=== PATIENT | male | born 1985 | race Caucasian/White ===

== ENCOUNTER 2018-08-30 18:17 | Emergency (ER) | payer SELFPAY ==
[2018-08-30 19:46] LABS: ABSOLUTE BASOPHILS # (AUTO) 0.1 10^3/uL (0.0-0.2); ABSOLUTE EOSINOPHILS # (AUTO) 0.2 10^3/uL (0.0-0.6); ABSOLUTE LYMPHOCYTES (AUTO) 1.8 10^3/uL (0.5-4.7); ABSOLUTE MONOCYTES (AUTO) 0.6 10^3/uL (0.1-1.4); ABSOLUTE NEUT (AUTO) 6.7 10^3/uL (1.7-8.2); BASOPHILS % (AUTO) 0.6 % (0-2); EOSINOPHILS % (AUTO) 2.1 % (0-6); HEMATOCRIT 46.2 % (37.9-51.0); HEMOGLOBIN 15.5 g/dL (13.5-17.0); LYMPHOCYTES % (AUTO) 19.3 % (13-45); MEAN CORPUSCULAR HEMOGLOBIN 28.8 pg (27.0-33.4); MEAN CORPUSCULAR HGB CONC 33.5 g/dL (32.0-36.0); MEAN CORPUSCULAR VOLUME 86 fl (80-97); MONOCYTES % (AUTO) 6.8 % (3-13); PLATELET COUNT 325 10^3/uL (150-450); RED BLOOD COUNT 5.37 10^6/uL (4.35-5.55); SEGMENTED NEUTROPHILS % (AUTO) 71.2 % (42-78); TOTAL CELLS COUNTED % (AUTO) 100 %; WHITE BLOOD COUNT 9.5 10^3/uL (4.0-10.5)
[2018-08-30 19:48] LABS: APPEARANCE,URINE CLEAR; BILIRUBIN,URINE NEGATIVE (NEGATIVE); COLOR,URINE STRAW; GLUCOSE, URINE NEGATIVE (NEGATIVE); KETONES,URINE NEGATIVE (NEGATIVE); LEUKOCYTE ESTERASE,URINE NEGATIVE (NEGATIVE); NITRITE,URINE NEGATIVE (NEGATIVE); PROTEIN,URINE NEGATIVE (NEGATIVE); UROBILINOGEN,URINE NEGATIVE mg/dL (<2.0)
[2018-08-30 19:52] LABS: INTERNATIONAL RATION (INR) 0.93
[2018-08-30 19:53] LABS: PARTIAL THROMBOPLASTIN TIME 32.7 SEC (23.5-35.8)
[2018-08-30 19:57] LABS: ALANINE AMINOTRANSFERASE 25 U/L (21-72); ALBUMIN 4.6 g/dL (3.5-5.0); ALKALINE PHOSPHATASE 68 U/L (38-126); ANION GAP 11 (5-19); ASPARTATE AMINO TRANSFERASE 21 U/L (17-59); BILIRUBIN,DIRECT 0.3 mg/dL (0.0-0.4); BILIRUBIN,TOTAL 0.4 mg/dL (0.2-1.3); BLOOD UREA NITROGEN 17 mg/dL (7-20); CALCIUM 9.8 mg/dL (8.4-10.2); CARBON DIOXIDE 29 mmol/L (22-30); CHLORIDE 103 mmol/L (98-107); GLUCOSE 89 mg/dL (75-110); LIPASE 109.1 U/L (23-300); POTASSIUM 4.4 mmol/L (3.6-5.0); SODIUM 142.7 mmol/L (137-145); TOTAL PROTEIN 7.7 g/dL (6.3-8.2)
[2018-08-30 20:05] LABS: URINE AMPHETAMINES SCREEN NEGATIVE; URINE BARBITURATES SCREEN NEGATIVE; URINE BENZODIAZEPINES SCREEN NEGATIVE; URINE COCAINE SCREEN NEGATIVE; URINE METHADONE SCREEN NEGATIVE; URINE PHENCYCLIDINE SCREEN NEGATIVE
--- NOTE | 2018-08-30 20:07 | RADIOLOGY REPORT (SQ) ---
EXAM DESCRIPTION: US ABDOMEN DOPPLER LIMITED COMPLETED DATE/TME: 08/30/2018 19:04 CLINICAL HISTORY: 33 years Male epigastric and ruq pain COMPARISON: None. TECHNIQUE: Transabdominal grayscale imaging were performed to evaluate the right upper quadrant. FINDINGS: Visualized segments of the pancreas are unremarkable. Pancreatic tail is partially obscured by bowel gas. The visualized segments of the aorta appear normal in caliber. Unremarkable liver. No evidence of gallbladder wall thickening, sludge or stones. Common duct measures 3 mm. Unremarkable right kidney without hydronephrosis. Patent hepatopedal portal vein. IMPRESSION: Unremarkable right upper quadrant ultrasound
[2018-08-30 20:10] LABS: URINE MARIJUANA (THC) SCREEN UNCONFIRMED POSITIVE
[2018-08-30] MEDS ORDERED: ONDANSETRON HCL INJ/PF 4 MG/2 ML SDV IV ONE (20:13)
[2018-08-30] MEDS ORDERED: NORMAL SALINE 1000 ML 1,000 ML IV ONE (20:13)
--- NOTE | 2018-08-30 20:18 | ER Document Report ---
ED General - General Chief Complaint: GI Bleeding Stated Complaint: ABDOMINAL PAIN,BLOOD IN STOOL Time Seen by Provider: 08/30/18 19:03 TRAVEL OUTSIDE OF THE [place] IN LAST 30 DAYS: No - HPI Notes: Patient is a 33-year-old male that presents to the emergency department for chief complaint of body diarrhea. Patient reports bright red blood in his diarrhea for the last 4 days. He states he is having bowel movements to times daily. He states he just had one in the emergency room that was not bloody. He denies any associated abdominal pain fevers or chills. He does state he is mildly nauseated with no emesis episodes. He denies any recent travel or antibiotic use. He denies any pain with bowel movement. He denies history of GI bleeding in the past. He is not on any blood thinning medications. He denies associated lightheadedness and palpitations. Past Medical History: Negative Past Surgical History: Bilateral inguinal hernia repair, surgery for undescended testicles as a child Social History: Uses marijuana and tobacco, denies alcohol use Family History: Reviewed and noncontributory for presenting illness Allergies: Reviewed, see documented allergy list. REVIEW OF SYSTEMS: CONSTITUTIONAL : No fever No chills No diaphoresis No recent illness EENT: No vision changes No congestion No sore throat CARDIOVASCULAR: No chest pain No palpitations RESPIRATORY: No shortness of breath No cough No difficulty breathing GASTROINTESTINAL: No abdominal pain nausea No vomiting No diarrhea GENITOURINARY: No dysuria No hematuria No difficulty urinating Bloody stools MUSCULOSKELETAL: No back pain No leg pain No arm pain SKIN: No rashes No lesions LYMPHATIC: No swollen, enlarged glands. NEUROLOGICAL: No lightheadedness No headache No weakness No paresthesias PSYCHIATRIC: No anxiety No depression PHYSICAL EXAMINATION: Vital signs reviewed, nursing noted reviewed. GENERAL: Well-appearing, obese and in no acute distress. HEAD: Atraumatic, normocephalic. EYES: Eyes appear normal, extraocular movements intact, sclera anicteric, conjunctiva are normal. ENT: nares patent, oropharynx clear without exudates. Moist mucous membranes. NECK: Normal range of motion, supple without lymphadenopathy LUNGS: Breath sounds clear to auscultation bilaterally and equal. No wheezes rales or rhonchi. HEART: Regular rate and rhythm without murmurs ABDOMEN: Soft, nontender, normoactive bowel sounds. No rebound, guarding, or rigidity. No masses appreciated. EXTREMITIES: Nontender, good range of motion, no pitting or edema. NEUROLOGICAL: No focal neurological deficits. Moves all extremities spontaneously Motor and sensory grossly intact on exam. PSYCH: Normal mood, normal affect. SKIN: Warm, Dry, normal turgor, no rashes or lesions noted on exposed skin - Related Data Allergies/Adverse Reactions: No Known Allergies Allergy (Unverified 08/30/18 18:25) Past Medical History - Social History Smoking Status: Current Every Day Smoker Frequency of alcohol use: None Drug Abuse: None Family History: Reviewed & Not Pertinent Patient has suicidal ideation: No Patient has homicidal ideation: No Renal/ Medical History: Denies: Hx Peritoneal Dialysis Past Surgical History: Reports: Hx Abdominal Surgery - hernia repair, Hx Genitourinary Surgery - x8 surgeries to bring testicles down, testicles removed Physical Exam - Vital signs Vitals: Temp Pulse Resp BP Pulse Ox 98.0 F 89 16 150/89 H 99 08/30/18 18:25 08/30/18 18:25 08/30/18 18:25 08/30/18 18:25 08/30/18 18:25 Course - Re-evaluation Re-evalutation: 08/30/18 20:15 Vitals reviewed. Nursing notes reviewed. Patient is well-appearing and in no acute distress. He is hemodynamically stable. He had a bowel movement in the emergency room and reports it looks normal. We did obtain a stool culture which will be sent for further evaluation. Patient's lab work is unremarkable. He has no anemia. He appears well-hydrated with no renal insufficiency or electrolyte derangements. Patient was given Zofran for his nausea. Will be referred to GI for follow-up and possible colonoscopy if symptoms return. Patient in agreement with this plan of care and stable at discharge. Laboratory 08/30/18 08/30/18 08/30/18 19:28 19:28 19:28 WBC 9.5 RBC 5.37 Hgb 15.5 Hct 46.2 MCV 86 MCH 28.8 MCHC 33.5 RDW 15.0 H Plt Count 325 Seg Neutrophils % 71.2 Lymphocytes % 19.3 Monocytes % 6.8 Eosinophils % 2.1 Basophils % 0.6 Absolute Neutrophils 6.7 Absolute Lymphocytes 1.8 Absolute Monocytes 0.6 Absolute Eosinophils 0.2 Absolute Basophils 0.1 PT 13.0 INR 0.93 APTT 32.7 Sodium 142.7 Potassium 4.4 Chloride 103 Carbon Dioxide 29 Anion Gap 11 BUN 17 Creatinine 0.73 Est GFR ( Amer) > 60 Est GFR (Non-Af Amer) > 60 Glucose 89 Calcium 9.8 Total Bilirubin 0.4 Direct Bilirubin 0.3 Neonat Total Bilirubin Not Reportable Neonat Direct Bilirubin Not Reportable Neonat Indirect Bili Not Reportable AST 21 ALT 25 Alkaline Phosphatase 68 Total Protein 7.7 Albumin 4.6 Lipase 109.1 Urine Color Urine Appearance Urine pH Ur Specific [place] Urine Protein Urine Glucose (UA) Urine Ketones Urine Blood Urine Nitrite Urine Bilirubin Urine Urobilinogen Ur Leukocyte Esterase Urine WBC (Auto) Urine RBC (Auto) Squamous Epi Cells Auto Urine Mucus (Auto) Urine Ascorbic Acid Urine Opiates Screen Urine Methadone Screen Ur Barbiturates Screen Ur Phencyclidine Scrn Ur Amphetamines Screen U Benzodiazepines Scrn Urine Cocaine Screen U Marijuana (THC) Screen 08/30/18 08/30/18 19:28 19:28 WBC RBC Hgb Hct MCV MCH MCHC RDW Plt Count Seg Neutrophils % Lymphocytes % Monocytes % Eosinophils % Basophils % Absolute Neutrophils Absolute Lymphocytes Absolute Monocytes Absolute Eosinophils Absolute Basophils PT INR APTT Sodium Potassium Chloride Carbon Dioxide Anion Gap BUN Creatinine Est GFR ( Amer) Est GFR (Non-Af Amer) Glucose Calcium Total Bilirubin Direct Bilirubin Neonat Total Bilirubin Neonat Direct Bilirubin Neonat Indirect Bili AST ALT Alkaline Phosphatase Total Protein Albumin Lipase Urine Color STRAW Urine Appearance CLEAR Urine pH 6.0 Ur Specific [place] 1.010 Urine Protein NEGATIVE Urine Glucose (UA) NEGATIVE Urine Ketones NEGATIVE Urine Blood NEGATIVE Urine Nitrite NEGATIVE Urine Bilirubin NEGATIVE Urine Urobilinogen NEGATIVE Ur Leukocyte Esterase NEGATIVE Urine WBC (Auto) 1 Urine RBC (Auto) 0 Squamous Epi Cells Auto <1 Urine Mucus (Auto) RARE Urine Ascorbic Acid NEGATIVE Urine Opiates Screen NEGATIVE Urine Methadone Screen NEGATIVE Ur Barbiturates Screen NEGATIVE Ur Phencyclidine Scrn NEGATIVE Ur Amphetamines Screen NEGATIVE U Benzodiazepines Scrn NEGATIVE Urine Cocaine Screen NEGATIVE U Marijuana (THC) Screen UNCONFIRMED POSITIVE Abdomen Ultrasound 08/30/18 19:04 IMPRESSION: Unremarkable right upper quadrant ultrasound - Vital Signs Vital signs: Temp Pulse Resp BP Pulse Ox 98.0 F 89 16 150/89 H 99 08/30/18 18:25 08/30/18 18:25 08/30/18 18:25 08/30/18 18:25 08/30/18 18:25 - Laboratory Result Diagrams: 08/30/18 19:28 08/30/18 19:28 Laboratory results interpreted by me: 08/30/18 19:28 RDW 15.0 H Discharge - Discharge Clinical Impression: Bloody diarrhea, Elevated blood pressure reading Condition: Stable Disposition: HOME, SELF-CARE Instructions: High Blood Pressure ([facility]), Positive Test for Blood in Stool ([facility]) Additional Instructions: Please return to the emergency department if you have any worsening, or concern of your symptoms. Please return to the emergency department if you develop fevers chest pain, difficulty breathing, severe abdominal pain, or ongoing vomiting. Please follow-up with your primary care physician in 2-3 days and any other recommended physicians. If prescribed, take all medications as directed. If you have any questions or concerns do not hesitate to return the emergency department for evaluation. Stay well-hydrated Prescriptions: Ondansetron [Zofran Odt 4 mg Tablet] 1 tab PO Q4H PRN #15 tab.rapdis PRN Reason: For Nausea/Vomiting Referrals: ELLIOT SEVERINO MD [ACTIVE STAFF] - Follow up in 3-5 days
[2018-08-30 20:44] VITALS: BP 150/79
== END 2018-08-30 20:44 | disposition home or self-care (01) ==
LOC: ER 18:17
DX: R19.5 Other fecal abnormalities (principal); R19.7 Diarrhea, unspecified; R03.0 Elevated blood-pressure reading, without diagnosis of hypertension; R11.0 Nausea; F17.200 Nicotine dependence, unspecified, uncomplicated
CPT/HCPCS: 99285; 96374; 36415; 87045; 87205; 83690; 85025; 85610; 85730; 82272; 80053; 81001; 80307; 76705; 93976; J2405

== ENCOUNTER 2018-09-14 19:43 | Emergency (ER) | payer SELFPAY ==
--- NOTE | 2018-09-14 20:33 | ER Document Report ---
HPI - HPI Patient complains to provider of: dental pain Time Seen by Provider: 09/14/18 20:31 Pain Level: 5 Past Medical History - Social History Family History: Reviewed & Not Pertinent Renal/ Medical History: Denies: Hx Peritoneal Dialysis Past Surgical History: Reports: Hx Abdominal Surgery - hernia repair, Hx Genitourinary Surgery - x8 surgeries to bring testicles down, testicles removed Vertical Provider Document - INFECTION CONTROL TRAVEL OUTSIDE OF THE [place] IN LAST 30 DAYS: No Course - Vital Signs Vital signs: Temp Pulse Resp BP Pulse Ox 100.1 F 102 H 20 129/72 H 95 09/14/18 20:00 09/14/18 20:00 09/14/18 20:00 09/14/18 20:00 09/14/18 20:00 Discharge - Discharge Clinical Impression: Pain, dental Condition: Stable Disposition: HOME, SELF-CARE Instructions: Penicillin V K ([facility]), Toothache ([facility]) Additional Instructions: *You have been evaluated for dental pain *Take medications as prescribed *Follow up with dentist *Return to ED for worsening condition, changes, needs
[2018-09-14 22:11] VITALS: BP 139/74
[2018-09-14] MEDS ORDERED: PENICILLIN V POTASSIUM 500 MG TABLET PO ONE (22:11)
[2018-09-14] MEDS ORDERED: HYDROCODONE/ACETAMINOPHEN 5-325 MG TABLET PO ONE (22:11)
--- NOTE | 2018-09-14 22:18 | ER Document Report ---
ED Oral Problem - General Chief Complaint: Toothache Stated Complaint: FEVER Time Seen by Provider: 09/14/18 20:31 Mode of Arrival: Ambulatory Information source: Patient Notes: 33-year-old male presented to ED for complaint of right lower dental pain that is much worse today. He states his been having a fever all day today. His temperature was 100.1 when I saw him and the emergency room. He states he has a tooth that is broken off at the gumline and it has become very sore and swollen. It is tooth #30 there is very minimal to this was mostly just the root and swelling to the gums. There is no abscess noted. TRAVEL OUTSIDE OF THE [place] IN LAST 30 DAYS: No - HPI Patient complains to provider of: Swelling of jaw, Toothache Onset: Other Onset: Gradual Quality of pain: Pressure, Stabbing, Throbbing Severity: Severe Pain Level: 5 Associated symptoms: Jaw pain, Toothache Worsened by: Nothing Relieved by: Nothing Similar symptoms previously: Yes Recently seen / treated by doctor/dentist: No - Related Data Allergies/Adverse Reactions: No Known Allergies Allergy (Unverified 08/30/18 18:25) Past Medical History - General Information source: Patient - Social History Smoking Status: Current Every Day Smoker Cigarette use (# per day): Yes - Half pack a day Smoking Education Provided: Yes Frequency of alcohol use: None Drug Abuse: Marijuana Occupation: [employer] with: Family Family History: Reviewed & Not Pertinent Patient has suicidal ideation: No Patient has homicidal ideation: No - Past Medical History Cardiac Medical History: Reports: None Pulmonary Medical History: Reports: None EENT Medical History: Reports: None Neurological Medical History: Reports: None Endocrine Medical History: Reports: None Renal/ Medical History: Reports: None Malignancy Medical History: 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 GI Medical History: Reports: None Musculoskeletal Medical History: Reports None Skin Medical History: Reports None Psychiatric Medical History: Reports: None Traumatic Medical History: Reports: None Infectious Medical History: Reports: None Past Surgical History: Reports: Hx Abdominal Surgery - hernia repair, Hx Genitourinary Surgery - x8 surgeries to bring testicles down, testicles removed, Hx Testicular Surgery - Left testicle removed for cancer - Immunizations Immunizations up to date: Yes Review of Systems - Review of Systems Constitutional: Fever EENT: Mouth pain, Dental problem Cardiovascular: No symptoms reported Respiratory: No symptoms reported Gastrointestinal: No symptoms reported Genitourinary: No symptoms reported Male Genitourinary: No symptoms reported Musculoskeletal: No symptoms reported Skin: No symptoms reported Hematologic/Lymphatic: No symptoms reported Neurological/Psychological: No symptoms reported -: Yes All other systems reviewed and negative Physical Exam - Vital signs Vitals: Temp Pulse Resp BP Pulse Ox 100.1 F 102 H 20 129/72 H 95 09/14/18 20:00 09/14/18 20:00 09/14/18 20:00 09/14/18 20:00 09/14/18 20:00 Interpretation: Normal - General General appearance: Appears well, Alert - HEENT Head: Normocephalic, Atraumatic Eyes: Normal Pupils: PERRL Ears: Normal External canal: Normal Tympanic membrane: Normal Sinus: Normal Nasal: Normal Mouth/Lips: Caries Mucous membranes: Normal Teeth diagram: 1 - Most of the tooth missing roots still present swelling surrounding the roots tenderness to palpation Pharynx: Normal Neck: Anterior cervical chain - Respiratory Respiratory status: No respiratory distress Chest status: Nontender Breath sounds: Normal Chest palpation: Normal - Cardiovascular Rhythm: Regular Heart sounds: Normal auscultation Murmur: No - Abdominal Inspection: Normal Distension: No distension Bowel sounds: Normal Tenderness: Nontender Organomegaly: No organomegaly - Back Back: Normal, Nontender - Extremities General upper extremity: Normal inspection, Nontender, Normal color, Normal ROM, Normal temperature General lower extremity: Normal inspection, Nontender, Normal color, Normal ROM, Normal temperature, Normal weight bearing. No: Ami's sign - Neurological Neuro grossly intact: Yes Cognition: Normal Orientation: AAOx4 Kenny Coma Scale Eye Opening: Spontaneous [place] Coma Scale Verbal: Oriented [place] Coma Scale Motor: Obeys Commands Kenny Coma Scale Total: 15 Speech: Normal Motor strength normal: LUE, RUE, LLE, RLE Sensory: Normal - Psychological Associated symptoms: Normal affect, Normal mood - Skin Skin Temperature: Warm Skin Moisture: Dry Skin Color: Normal Course - Re-evaluation Re-evalutation: 05/21/19 00:37 Patient was treated with penicillin VK and a Tatum in the emergency room. Patient was discharged home with prescription for penicillin VK. Patient was instructed on use of Tylenol or Motrin and instructed to follow-up with primary care and a dentist. Patient was discharged home. - Vital Signs Vital signs: Temp Pulse Resp BP Pulse Ox 100.1 F 100 19 139/74 H 96 09/14/18 22:09 09/14/18 22:09 09/14/18 22:09 09/14/18 22:09 09/14/18 22:09 Discharge - Discharge Clinical Impression: Pain, dental Condition: Stable Disposition: HOME, SELF-CARE Instructions: Family Physicians / Practices Additional Instructions: TOOTHACHE: Your pain is due to dental decay. The tooth must be repaired in order for you to feel better. You will, therefore, be referred to a dentist. We do not have dentists on the staff at [facility]. Severe swelling or drainage around a tooth usually means a dental abscess. This also requires evaluation and treatment by the dentist, but antibiotics may be prescribed while awaiting dental treatment. You should be rechecked immediately if you develop major swelling of the face, increasing pain, a lump in the jaw or gums, headache, difficulty swallowing, or fever. ORAL NARCOTIC MEDICATION: You have been given a Tatum for pain control. This medication is a narcotic. It's best taken with food, as nausea can result if taken on an empty stomach. Don't operate machinery or drive within six hours of taking this med ication. Do not combine this medicine with alcohol, or with any medication which can cause sedation (such as cold tablets or sleeping pills) unless you get permission from the physician. Narcotics tend to cause constipation. If possible, drink plenty of fluids and eat a diet high in fiber and fruits. Please be aware that prescription narcotics also have the potential for abuse. People become addicted to these medications because of the general sense of wellbeing that they induce. This feeling along with a significant reduction in tension, anxiety, and aggression provides a stimulating seductive quality to these drugs. Once your pain is under control, we encourage you to discard your unused narcotics. PENICILLIN V K: You have been given a prescription for Penicillin VK. Your physician has determined that this is the best antibiotic for your condition. Pen VK can be taken with meals, however more of the antibiotic gets into the bloodstream if it's taken on an empty stomach. Penicillin usually has no side effects. However, allergy to penicillins is common. If you have had an allergic reaction to any drug of the penicillin family, you should never take any other penicillin. Notify your doctor at once if you develop hives, itching, swelling, faintness, or shortness of breath. FOLLOW-UP CARE: You have been referred for follow-up care to the dentists listed below. Call the dentists office for an appointment as you were instructed or within the next two days. If you experience worsening or a significant change in your symptoms, notify the physician immediately or return to the Emergency Department at any time for re-evaluation. [facility] [address] [place], [place] [facility] [address] [place] [address] [facility] [address] [facility] [address] [facility] [address] [facility] [address] [facility] [email or web address] [email or web address] [facility] [employer] [address] [place] [address] Friday- 8:00am to 5:00 pm Will see patients from other [facility]. Charges based on income and family size and accepts Medicare, Medicaid, and Insurances Will pull molars [facility] [id number] Hours of Operation 8:00 am - 4:30 pm weekdays The following dental offices accept Medicaid: [facility] Dr. Calixto Dr. Black Dr. Stahl Dr. Hardin Mateusz Fagan Lutsavage, and [facility] oral surgery Dr. Bueno ([place]) Dr. Mckoy ([place]) [facility] Drs. Monroy and Eladio ([place]) Dr. Orozco ([place]) [facility] Dr. Gomez ([place]) Drs. Crow and ([place]) Medicaid Care Line Prescriptions: Penicillin V Potassium [Penicillin Vk 500 mg Tablet] 500 mg PO BID #20 tablet Forms: Elevated Blood Pressure, Smoking Cessation Education, Return to Work
== END 2018-09-14 22:38 | disposition home or self-care (01) ==
LOC: ER 19:43
DX: K08.89 Other specified disorders of teeth and supporting structures (principal); R50.9 Fever, unspecified; R22.0 Localized swelling, mass and lump, head; R68.84 Jaw pain; F17.210 Nicotine dependence, cigarettes, uncomplicated
CPT/HCPCS: 99282

== ENCOUNTER 2018-11-09 18:24 | Emergency (ER) | payer SELFPAY ==
[2018-11-09 23:46] VITALS: BP 135/85
--- NOTE | 2018-11-10 07:34 | ER Document Report ---
Entered by JOSE GUERRA SCRIBE 11/09/18 [id number] Acting as scribe for:KARMEN GAMBLE DO ED General - General Chief Complaint: Lip Swelling Stated Complaint: BLISTERS ON LIPS Time Seen by Provider: 11/09/18 22:43 Notes: Patient is a 33-year-old male presenting to the emergency department complaining of lip blistering. Patient states that his lips began bubbling up yesterday, it progressed and they became very chapped and blistered today and it has been painful. 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 Patient has a his history of genital herpes, and currently takes antipsychotics but has not had any recent change or increase in his medications. Patient denies having any blisters in inside of his mouth, on eyes, ears, nose, genital area, urethra. TRAVEL OUTSIDE OF THE [place] 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 Cardiovascular: No symptoms reported Respiratory: No symptoms reported Gastrointestinal: No symptoms reported Genitourinary: No symptoms reported Male Genitourinary: No symptoms reported Musculoskeletal: No symptoms reported Skin: See HPI - Lip blisters. Hematologic/Lymphatic: No symptoms reported Neurological/Psychological: No symptoms reported -: Yes All other systems reviewed and negative Physical Exam - Vital signs Vitals: Temp Pulse Resp BP Pulse Ox 98.4 F 94 20 148/79 H 98 11/09/18 18:37 11/09/18 18:37 11/09/18 18:37 11/09/18 18:37 11/09/18 18:37 - Notes Notes: PHYSICAL EXAM GENERAL: Alert, interacts well. No acute distress. HEAD: Normocephalic, atraumatic. EYES: Pupils equal, round, and reactive to light. Extraocular movements intact. ENT: No blisters present in ears bilaterally. Fluid-filled vesicles on both lips in various stages of healing, they do cross the midline. There are no blisters inside the mouth. There are 3 blisters found outside of the mouth just above and below the lips on the left-hand side. Oral mucosa moist, tongue midline. NECK: Full range of motion. Supple. Trachea midline. LUNGS: Clear to auscultation bilaterally, no wheezes, rales, or rhonchi. No respiratory distress. HEART: Regular rate and rhythm. No murmurs, gallops, or rubs. ABDOMEN: Soft, non-tender. Non-distended. Bowel sounds present in all 4 quadrants. No guarding, rigidity, or rebound. EXTREMITIES: Moves all 4 extremities spontaneously. No edema, No cyanosis. NEUROLOGICAL: Alert and oriented x3. Normal speech. Biceps and patellar DTRs 2+ bilaterally. PSYCH: Normal affect, normal mood. SKIN: Warm, dry. Course - Re-evaluation Re-evalutation: 11/09/18 23:21 Blisters are limited only to the lips, no blistering inside her mouth or any new meds other mucous membranes, no sloughing, negative Nikolsky sign. Patient has a history of genital herpes outbreaks in the past. Doubt Alcantara-South syndrome at this time. Treat with acyclovir and discharged home. - Vital Signs Vital signs: Temp Pulse Resp BP Pulse Ox 98.2 F 80 18 135/85 H 98 11/09/18 23:44 11/09/18 23:44 11/09/18 23:44 11/09/18 23:44 11/09/18 23:44 Discharge - Discharge Clinical Impression: Herpes labialis without complication Condition: Stable Disposition: HOME, SELF-CARE Additional Instructions: Herpes Simplex You have been diagnosed as having a herpes virus infection. The herpes ("cold sore") virus usually infects the areas around the mouth. However, it can cause infection on any skin surface. It's particularly dangerous if infection occurs in the eye. On the initial infection, herpes blisters erupt over a large area. There is usually fever and aching. This infection takes about 14 days to resolve. After the initial infection, herpes sores can erupt on small areas (usually the lips), then heal in about a week. Sunburn, fever, local irritation, or even emotions can provoke a "fever blister" attack of herpes. Initial herpes infections can be treated with medication if severe. Subsequent attacks are usually given only local care to reduce symptoms; however, the physician may decide to prescribe anti-viral medication if your case warrants it. Call the doctor if you are worsening in any way. If you develop blisters in your mouth, in your nose, around your rectum or on your penis please return to the emergency department. Prescriptions: Acyclovir [Zovirax 200 mg Capsule] 200 mg PO 5XD #50 capsule I personally performed the services described in the documentation, reviewed and edited the documentation which was dictated to the scribe in my presence, and it accurately records my words and actions.
== END 2018-11-09 23:44 | disposition home or self-care (01) ==
LOC: ER 18:24
DX: B00.1 Herpesviral vesicular dermatitis (principal); F17.200 Nicotine dependence, unspecified, uncomplicated
CPT/HCPCS: 99283

== ENCOUNTER 2019-03-06 05:22 | Emergency (ER) | payer SELFPAY ==
[2019-03-06] MEDS ORDERED: ONDANSETRON HCL INJ/PF 4 MG/2 ML SDV IV ONE ×3 (05:59→09:24)
[2019-03-06] MEDS ORDERED: MORPHINE SULFATE 10 MG/ML INJ IV ONE (05:59)
[2019-03-06] MEDS ORDERED: NORMAL SALINE 1000 ML 1,000 ML IV ONE (05:59)
--- NOTE | 2019-03-06 06:05 | ER Document Report ---
ED GI/ - General TRAVEL OUTSIDE OF THE [place] IN LAST 30 DAYS: No <CESAR PRESCOTT - Last Filed: 03/06/19 07:18> <ELIUD CORRIGAN - Last Filed: 03/06/19 10:50> - General Chief Complaint: Lower Abdominal Pain Stated Complaint: PELVIC PAIN Time Seen by Provider: 03/06/19 05:45 Notes: Patient is a 33-year-old male that comes to the emergency department for chief complaint of sharp lower abdominal pain with nausea. He states he has had worsening pain for the past 2 days but this morning it became much more severe. He denies vomiting, fever, he states he had a normal bowel movement within the past 24 hours. He denies dysuria or penile discharge. He has had bilateral inguinal hernia repair, testicular removal for testicular cancer (on no current treatments for this), and testicular removal for testicular torsion. Only medications reported are antidepressants and testosterone. His significant other is at bedside. (CESAR PRESCOTT) - Related Data Allergies/Adverse Reactions: No Known Allergies Allergy (Verified 03/06/19 05:23) Past Medical History - General Information source: Patient - Sodium 1 - Social History Smoking Status: Never Smoker Drug Abuse: None Lives with: Family Family History: Reviewed & Not Pertinent Patient has suicidal ideation: No Patient has homicidal ideation: No Renal/ Medical History: Denies: Hx Peritoneal Dialysis Malignancy Medical History: 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 Past Surgical History: Reports: Hx Abdominal Surgery - Bilateral inguinal hernia repair, Hx Genitourinary Surgery - x8 surgeries for undescended testicle, removed for torsion (right), Hx Testicular Surgery - Left testicle removed for cancer - Immunizations Immunizations up to date: Yes <CESAR PRESCOTT - Last Filed: 03/06/19 07:18> Review of Systems - Review of Systems Constitutional: No symptoms reported EENT: No symptoms reported Cardiovascular: No symptoms reported Respiratory: No symptoms reported Gastrointestinal: See HPI Genitourinary: See HPI Male Genitourinary: No symptoms reported Musculoskeletal: No symptoms reported Skin: No symptoms reported Hematologic/Lymphatic: No symptoms reported Neurological/Psychological: No symptoms reported <CESAR PRESCOTT - Last Filed: 03/06/19 07:18> Physical Exam <CESAR PRESCOTT - Last Filed: 03/06/19 07:18> - Vital signs Vitals: Temp Pulse Resp BP Pulse Ox 97.7 F 57 L 16 156/90 H 100 03/06/19 05:27 03/06/19 05:27 03/06/19 05:27 03/06/19 05:27 03/06/19 05:27 - Notes Notes: GENERAL: Alert, interacts well. Appears mildly uncomfortable. HEAD: Normocephalic, atraumatic. EYES: Pupils equal, round, and reactive to light. Extraocular movements intact. ENT: Oral mucosa moist, tongue midline. Oropharynx unremarkable. Airway patent. LUNGS: Clear to auscultation bilaterally, no wheezes, rales, or rhonchi. No respiratory distress. HEART: Regular rate and rhythm. No murmur ABDOMEN: Bilateral lower abdominal tenderness in the lower abdomen extending to the suprapubic area, no hard or erythematous areas are noted, no specific guarding, no rigidity. Bowel sounds present throughout. GENITOURINARY: No discharge or tenderness noted, no erythema, patient has no testicles. Unremarkable otherwise. EXTREMITIES: Moves all 4 extremities spontaneously. No edema, normal radial and dorsalis pedis pulses bilaterally. No cyanosis. BACK: no cervical, thoracic, lumbar midline tenderness. No saddle anesthesia, normal distal neurovascular exam. NEUROLOGICAL: Alert and oriented x3. Normal speech. Cranial nerves II through XII grossly intact. PSYCH: Normal affect, normal mood. SKIN: Warm, dry, normal turgor. No rashes or lesions noted. (CESAR PRESCOTT) Course - Laboratory Result Diagrams: 03/06/19 06:20 03/06/19 06:20 <CESAR PRESCOTT - Last Filed: 03/06/19 07:18> - Laboratory Result Diagrams: 03/06/19 06:20 03/06/19 06:20 <ELIUD CORRIGAN - Last Filed: 03/06/19 10:50> - Re-evaluation Re-evalutation: CBC, chemistry nonspecific with no concerning a normality's. Urine is still pending. I reevaluate patient, he states he feels better, he looks more comfortable, he still states he has a lot of pain in the general lower abdomen. Because of patient's surgical history, worsening pain and nausea, imaging will be performed. (CESAR PRESCOTT) 03/06/19 10:37 I accepted patient from [facility], at change of shift at 8 AM. We did a warm bedside handoff and patient was sitting comfortably in the bed reporting mild pain but significant interval improvement from initial presentation per Cesar. Urinalysis was negative for a urinary tract infection and without hematuria effectively ruling out urinary tract infection, and I do not suspect prostatitis. Lab work all within normal limits. CT abdomen/pelvis with IV and oral contrast was negative for any surgical pathology. Patient states that he was recently able to start getting erections due to testosterone replacement therapy and questioned if this could be the cause of the pain. I explained to patient is very unlikely that this is the cause of the abdominal pain and could be due to scar tissue from his significant surgical history. Plan is to discharge him home with Zofran ODT and a short course of pain medication. Stable for discharge. (ELIUD CORRIGAN) - Vital Signs Vital signs: Temp Pulse Resp BP Pulse Ox 97.9 F 72 16 144/62 H 99 03/06/19 06:55 03/06/19 06:55 03/06/19 06:55 03/06/19 06:55 03/06/19 06:55 - Laboratory Laboratory results interpreted by me: 03/06/19 03/06/19 06:20 06:20 Hgb 13.4 L Chloride 108 H Calcium 8.3 L AST 15 L Total Protein 5.6 L Albumin 3.2 L Discharge <CESAR PRESCOTT - Last Filed: 03/06/19 07:18> <ELIUD CORRIGAN - Last Filed: 03/06/19 10:50> - Discharge Clinical Impression: Lower abdominal pain Condition: Good Disposition: HOME, SELF-CARE Instructions: Abdominal Pain ([facility]), Bulk Laxatives Additional Instructions: You were seen in the emergency room for lower abdominal pain. Your work-up was completely negative to include normal lab work, a normal urinalysis, and your CT scan did not show any evidence or concern for surgical pathology. Once your insurance is set please obtain a primary care provider so you can get referral to urologist. I will give you information for the [facility] urology group here in town so you have it just in case. Add MiraLAX to your diet to see if that will help firm up your stools. Also, I have given you a very short course of pain medication to help bridge you through this acute phase. You can continue to take ibuprofen 600 mg every 6 hours and/or Tylenol 1000 mg every 6 hours for pain and discomfort. Please return to the emergency department if your abdominal pain gets acutely worse, you unable to pass gas or have a bowel movement, you are unable to urinate, or you have any other concerning symptoms. Referrals: LACI BROWN MD [NO LOCAL MD] - Follow up as needed
[2019-03-06 06:31] LABS: ABSOLUTE EOSINOPHILS # (AUTO) 0.4 10^3/uL (0.0-0.6); ABSOLUTE MONOCYTES (AUTO) 0.5 10^3/uL (0.1-1.4); BASOPHILS % (AUTO) 0.5 % (0-2); TOTAL CELLS COUNTED % (AUTO) 100 %
[2019-03-06 06:39] LABS: ABSOLUTE LYMPHOCYTES (AUTO) 2.1 10^3/uL (0.5-4.7); ABSOLUTE NEUT (AUTO) 4.6 10^3/uL (1.7-8.2); EOSINOPHILS % (AUTO) 4.9 % (0-6); HEMATOCRIT 39.1 % (37.9-51.0); HEMOGLOBIN 13.4 g/dL (13.5-17.0); LYMPHOCYTES % (AUTO) 27.5 % (13-45); MEAN CORPUSCULAR HEMOGLOBIN 29.5 pg (27.0-33.4); MEAN CORPUSCULAR HGB CONC 34.3 g/dL (32.0-36.0); MEAN CORPUSCULAR VOLUME 86 fl (80-97); MONOCYTES % (AUTO) 7.1 % (3-13); PLATELET COUNT 295 10^3/uL (150-450); RED BLOOD COUNT 4.55 10^6/uL (4.35-5.55); RED CELL DISTRIBUTION WIDTH 13.5 % (11.5-14.0); WHITE BLOOD COUNT 7.7 10^3/uL (4.0-10.5)
[2019-03-06 06:40] LABS: ALBUMIN 3.2 g/dL (3.5-5.0); ALKALINE PHOSPHATASE 55 U/L (38-126); ANION GAP 6 (5-19); ASPARTATE AMINO TRANSFERASE 15 U/L (17-59); BILIRUBIN,TOTAL 0.4 mg/dL (0.2-1.3); BLOOD UREA NITROGEN 14 mg/dL (7-20); CALCIUM 8.3 mg/dL (8.4-10.2); CARBON DIOXIDE 26 mmol/L (22-30); CHLORIDE 108 mmol/L (98-107); GLUCOSE 103 mg/dL (75-110); POTASSIUM 3.8 mmol/L (3.6-5.0); TOTAL PROTEIN 5.6 g/dL (6.3-8.2)
[2019-03-06] MEDS ORDERED: HYDROMORPHONE HCL INJ/PF 2 MG/ML AMPULE IV ONE ×2 (07:37→10:28)
[2019-03-06 08:17] LABS: APPEARANCE,URINE CLEAR; BILIRUBIN,URINE NEGATIVE (NEGATIVE); COLOR,URINE YELLOW; GLUCOSE, URINE NEGATIVE (NEGATIVE); KETONES,URINE NEGATIVE (NEGATIVE); LEUKOCYTE ESTERASE,URINE NEGATIVE (NEGATIVE); NITRITE,URINE NEGATIVE (NEGATIVE); PROTEIN,URINE NEGATIVE (NEGATIVE); UROBILINOGEN,URINE NEGATIVE mg/dL (<2.0)
--- NOTE | 2019-03-06 10:17 | RADIOLOGY REPORT (SQ) ---
EXAM DESCRIPTION: CT ABD/PELVIS WITH IV ORAL COMPLETED DATE/TIME: 03/06/2019 10:05 am REASON FOR STUDY: sharp abd pain,nausea, hx hernia repairs COMPARISON: None. TECHNIQUE: CT scan of the abdomen and pelvis performed using helical scanning technique with dynamic intravenous contrast injection. With oral contrast. Images reviewed with lung, soft tissue, and bon e windows. Reconstructed coronal and sagittal MPR images reviewed. Delayed images for evaluation of t he urinary system also acquired. All images stored on PACS. All CT scanners at this facility use dose modulation, iterative reconstruction, and/or weight based d osing when appropriate to reduce radiation dose to as low as reasonably achievable (ALARA). [facility]: Dose Right [facility]: CareDose [facility]: Dose Right [facility]: Teradose 4D [facility]: [employer] CONTRAST TYPE AND DOSE: contrast/concentration: Isovue 350.00 mg/ml; Total Contrast Delivered: 100.0 ml; Total Saline Delivered: 72.0 ml RENAL FUNCTION: None required. The patient is less than 50 years old. RADIATION DOSE: CT Rad equipment meets quality standard of care and radiation dose reduction techniq ues were employed. CTDIvol: NaN - NaN mGy. DLP: 0 mGy-cm.. LIMITATIONS: None. FINDINGS: LOWER CHEST: No significant findings. No nodules or infiltrates. LIVER: Normal size. No masses. No dilated ducts. SPLEEN: Normal size. No focal lesions. PANCREAS: No masses. No significant calcifications. No adjacent inflammation or peripancreatic fluid collections. Pancreatic duct not dilated. GALLBLADDER: No identified stones by CT criteria. No inflammatory changes to suggest cholecystitis. ADRENAL GLANDS: No significant masses or asymmetry. RIGHT KIDNEY AND URETER: No solid masses. No significant calcifications. No hydronephrosis or hyd roureter. LEFT KIDNEY AND URETER: No solid masses. No significant calcifications. No hydronephrosis or hydr oureter. AORTA AND VESSELS: No aneurysm. No dissection. Renal arteries, SMA, celiac without stenosis. RETROPERITONEUM: No retroperitoneal adenopathy, hemorrhage or masses. BOWEL AND PERITONEAL CAVITY: No masses or inflammatory changes. No free fluid or peritoneal masses. APPENDIX: Normal. PELVIS: No mass. No free fluid. Normal bladder. ABDOMINAL WALL: No masses. No hernias. BONES: No significant or acute findings. OTHER: No other significant finding. IMPRESSION: NO SIGNIFICANT OR ACUTE FINDING IN THE ABDOMEN OR PELVIS ON CT SCAN WITH IV CONTRAST. TECHNICAL DOCUMENTATION: JOB ID: [id number] Quality ID # [id number]: Final reports with documentation of one or more dose reduction techniques (e.g., Au tomated exposure control, adjustment of the mA and/or kV according to patient size, use of iterative reconstruction technique) 2010 [employer]- All Rights Reserved Reading location - IP/workstation name: [email or web address]
[2019-03-06] MEDS ORDERED: HYDROCODONE/ACETAMINOPHEN 5-325 MG (6 TAB/ER DISP) PO PRN (10:48)
[2019-03-06] MEDS ORDERED: ONDANSETRON ODT 4 MG TAB (6 TAB/ER DISP) PO PRN (10:48)
[2019-03-06 11:14] VITALS: BP 120/68
== END 2019-03-06 11:16 | disposition home or self-care (01) ==
LOC: ER 05:22
DX: R10.30 Lower abdominal pain, unspecified (principal); R11.0 Nausea; Z85.47 Personal history of malignant neoplasm of testis; Z90.79 Acquired absence of other genital organ(s)
CPT/HCPCS: 96376; 99284; 96361; 96374; 96375; 36415; 83605; 85025; 80053; 81001; 74177; J2270; J1170; J2405; J7030

== ENCOUNTER 2019-03-24 18:54 | Emergency (ER) | payer SELFPAY ==
[2019-03-24] MEDS ORDERED: NORMAL SALINE 1000 ML 1,000 ML IV ONE (19:31)
[2019-03-24] MEDS ORDERED: ONDANSETRON HCL INJ/PF 4 MG/2 ML SDV IV ONE (19:31)
--- NOTE | 2019-03-24 19:33 | ER Document Report ---
ED Medical Screen (RME) - General Chief Complaint: Rectal Bleeding Stated Complaint: RECTAL BLEEDING Time Seen by Provider: 03/24/19 19:30 Mode of Arrival: Ambulatory Information source: Patient Notes: Patient presents complaining of lower pelvic pain for the past 2 weeks with rectal bleeding for the past 4 days. Patient does report feeling lightheaded. Patient denies any fever. Patient states he has had diarrhea for the past 6 weeks. Patient also complains of nausea. Patient does report a history of Crohn's disease I have greeted and performed a rapid initial assessment of this patient. A comprehensive ED assessment and evaluation of the patient, analysis of test results and completion of the medical decision making process will be conducted by additional ED providers. TRAVEL OUTSIDE OF THE [place] IN LAST 30 DAYS: No - Related Data Allergies/Adverse Reactions: No Known Allergies Allergy (Verified 03/06/19 05:23) Past Medical History Renal/ Medical History: Denies: Hx Peritoneal Dialysis Malignancy Medical History: 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 Past Surgical History: Reports: Hx Abdominal Surgery - Bilateral inguinal hernia repair, Hx Genitourinary Surgery - x8 surgeries for undescended testicle, removed for torsion (right), Hx Testicular Surgery - Left testicle removed for cancer - Immunizations Immunizations up to date: Yes Physical Exam - Vital signs Vitals: Temp Pulse Resp BP Pulse Ox 98.7 F 82 20 146/86 H 97 03/24/19 19:11 03/24/19 19:11 03/24/19 19:11 03/24/19 19:11 03/24/19 19:11 - Abdominal Tenderness: Tender - Lower pelvic Course - Vital Signs Vital signs: Temp Pulse Resp BP Pulse Ox 98.7 F 82 20 146/86 H 97 03/24/19 19:11 03/24/19 19:11 03/24/19 19:11 03/24/19 19:11 03/24/19 19:11
[2019-03-24 20:01] LABS: ABSOLUTE EOSINOPHILS # (AUTO) 0.2 10^3/uL (0.0-0.6); ABSOLUTE LYMPHOCYTES (AUTO) 2.9 10^3/uL (0.5-4.7); ABSOLUTE MONOCYTES (AUTO) 0.8 10^3/uL (0.1-1.4); APPEARANCE,URINE CLEAR; BASOPHILS % (AUTO) 0.4 % (0-2); BILIRUBIN,URINE NEGATIVE (NEGATIVE); COLOR,URINE YELLOW; EOSINOPHILS % (AUTO) 1.8 % (0-6); GLUCOSE, URINE NEGATIVE (NEGATIVE); HEMATOCRIT 39.7 % (37.9-51.0); HEMOGLOBIN 13.5 g/dL (13.5-17.0); KETONES,URINE NEGATIVE (NEGATIVE); LEUKOCYTE ESTERASE,URINE NEGATIVE (NEGATIVE); LYMPHOCYTES % (AUTO) 26.2 % (13-45); MEAN CORPUSCULAR HEMOGLOBIN 29.1 pg (27.0-33.4); MEAN CORPUSCULAR HGB CONC 34.2 g/dL (32.0-36.0); MEAN CORPUSCULAR VOLUME 85 fl (80-97); MONOCYTES % (AUTO) 7.2 % (3-13); NITRITE,URINE NEGATIVE (NEGATIVE); PLATELET COUNT 342 10^3/uL (150-450); PROTEIN,URINE NEGATIVE (NEGATIVE); RED BLOOD COUNT 4.66 10^6/uL (4.35-5.55); RED CELL DISTRIBUTION WIDTH 12.8 % (11.5-14.0); SEGMENTED NEUTROPHILS % (AUTO) 64.4 % (42-78); TOTAL CELLS COUNTED % (AUTO) 100 %; WHITE BLOOD COUNT 10.9 10^3/uL (4.0-10.5)
[2019-03-24 20:08] LABS: INTERNATIONAL RATION (INR) 0.94; PROTHROMBIN TIME 12.6 SEC (11.4-15.4)
[2019-03-24 20:09] LABS: PARTIAL THROMBOPLASTIN TIME 30.8 SEC (23.5-35.8)
[2019-03-24 20:12] LABS: ALBUMIN 3.8 g/dL (3.5-5.0); ALKALINE PHOSPHATASE 60 U/L (38-126); ANION GAP 10 (5-19); ASPARTATE AMINO TRANSFERASE 17 U/L (17-59); BILIRUBIN,DIRECT 0.1 mg/dL (0.0-0.4); BILIRUBIN,TOTAL 0.4 mg/dL (0.2-1.3); BLOOD UREA NITROGEN 10 mg/dL (7-20); CALCIUM 9.1 mg/dL (8.4-10.2); CARBON DIOXIDE 29 mmol/L (22-30); CHLORIDE 103 mmol/L (98-107); GLUCOSE 87 mg/dL (75-110); POTASSIUM 3.7 mmol/L (3.6-5.0); TOTAL PROTEIN 6.4 g/dL (6.3-8.2)
--- NOTE | 2019-03-24 20:23 | ER Document Report ---
ED General - General Chief Complaint: Rectal Bleeding Stated Complaint: RECTAL BLEEDING Time Seen by Provider: 03/24/19 19:30 Primary Care Provider: ELLIOT SEVERINO MD [ACTIVE STAFF] - Follow up as needed GARRY PARRA MD [ACTIVE STAFF] - Follow up as needed Mode of Arrival: Ambulatory Information source: Patient Notes: Patient is a 33-year-old male with history of Crohn's disease presenting with complaints of low abdominal pain and rectal bleeding. Patient reports some blood on the toilet paper when he wipes. He reports normal bowel movements, denies any nausea or vomiting. He was seen here in this emergency department for the low abdominal pain approximately 2 weeks ago. He has not followed up. TRAVEL OUTSIDE OF THE [place] IN LAST 30 DAYS: No - Related Data Allergies/Adverse Reactions: No Known Allergies Allergy (Verified 03/06/19 05:23) Home Medications: vrylar, testostrone injections Past Medical History - General Information source: Patient - Social History Smoking Status: Current Some Day Smoker Chew tobacco use (# tins/day): No Frequency of alcohol use: None Drug Abuse: None Family History: Reviewed & Not Pertinent Patient has suicidal ideation: No Patient has homicidal ideation: No Renal/ Medical History: Denies: Hx Peritoneal Dialysis Malignancy Medical History: 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 Past Surgical History: Reports: Hx Abdominal Surgery - Bilateral inguinal hernia repair, Hx Genitourinary Surgery - x8 surgeries for undescended testicle, removed for torsion (right), Hx Testicular Surgery - Left testicle removed for cancer - Immunizations Immunizations up to date: Yes Physical Exam - Vital signs Vitals: Temp Pulse Resp BP Pulse Ox 98.7 F 82 20 146/86 H 97 03/24/19 19:11 03/24/19 19:11 03/24/19 19:11 03/24/19 19:11 03/24/19 19:11 - Notes Notes: PHYSICAL EXAMINATION: GENERAL: Well-appearing, well-nourished and in no acute distress. HEAD: Atraumatic, normocephalic. EYES: Pupils equal round and reactive to light, extraocular movements intact, sclera anicteric, conjunctiva are normal. ENT: Nares patent, oropharynx clear without exudates. Moist mucous membranes. NECK: Normal range of motion, supple without lymphadenopathy LUNGS: Breath sounds clear to auscultation bilaterally and equal. No wheezes rales or rhonchi. HEART: Regular rate and rhythm without murmurs ABDOMEN: Soft, nontender, nondistended abdomen. No guarding, no rebound. No masses appreciated. GI: No obvious blood noted on rectal exam, Hemoccult was positive. No obvious external hemorrhoids, one external hemorrhoid was palpated. Musculoskeletal: Normal range of motion, no pitting or edema. No cyanosis. NEUROLOGICAL: Cranial nerves grossly intact. Normal speech, normal gait. Normal sensory, motor exams PSYCH: Normal mood, normal affect. SKIN: Warm, Dry, normal turgor, no rashes or lesions noted. Course - Re-evaluation Re-evalutation: Laboratory 03/24/19 03/24/19 03/24/19 19:46 19:46 19:46 WBC 10.9 H RBC 4.66 Hgb 13.5 Hct 39.7 MCV 85 MCH 29.1 MCHC 34.2 RDW 12.8 Plt Count 342 Lymph % (Auto) 26.2 [place] % (Auto) 7.2 Eos % (Auto) 1.8 Baso % (Auto) 0.4 Absolute Neuts (auto) 7.0 Absolute Lymphs (auto) 2.9 Absolute Monos (auto) 0.8 Absolute Eos (auto) 0.2 Absolute Basos (auto) 0.0 Seg Neutrophils % 64.4 PT 12.6 INR 0.94 APTT 30.8 Sodium 142.3 Potassium 3.7 Chloride 103 Carbon Dioxide 29 Anion Gap 10 BUN 10 Creatinine 0.69 Est GFR ( Amer) > 60 Est GFR (MDRD) Non-Af > 60 Glucose 87 Calcium 9.1 Total Bilirubin 0.4 Direct Bilirubin 0.1 Neonat Total Bilirubin Not Reportable Neonat Direct Bilirubin Not Reportable Neonat Indirect Bili Not Reportable AST 17 ALT 16 Alkaline Phosphatase 60 Total Protein 6.4 Albumin 3.8 Lipase 70.3 Urine Color Urine Appearance Urine pH Ur Specific [place] Urine Protein Urine Glucose (UA) Urine Ketones Urine Blood Urine Nitrite Urine Bilirubin Urine Urobilinogen Ur Leukocyte Esterase Urine WBC (Auto) Urine RBC (Auto) Urine Mucus (Auto) Urine Ascorbic Acid POC Stool Occult Blood 03/24/19 03/24/19 19:46 20:54 WBC RBC Hgb Hct MCV MCH MCHC RDW Plt Count Lymph % (Auto) [place] % (Auto) Eos % (Auto) Baso % (Auto) Absolute Neuts (auto) Absolute Lymphs (auto) Absolute Monos (auto) Absolute Eos (auto) Absolute Basos (auto) Seg Neutrophils % PT INR APTT Sodium Potassium Chloride Carbon Dioxide Anion Gap BUN Creatinine Est GFR ( Amer) Est GFR (MDRD) Non-Af Glucose Calcium Total Bilirubin Direct Bilirubin Neonat Total Bilirubin Neonat Direct Bilirubin Neonat Indirect Bili AST ALT Alkaline Phosphatase Total Protein Albumin Lipase Urine Color YELLOW Urine Appearance CLEAR Urine pH 6.0 Ur Specific [place] 1.010 Urine Protein NEGATIVE Urine Glucose (UA) NEGATIVE Urine Ketones NEGATIVE Urine Blood MODERATE H Urine Nitrite NEGATIVE Urine Bilirubin NEGATIVE Urine Urobilinogen 2.0 H Ur Leukocyte Esterase NEGATIVE Urine WBC (Auto) 3 Urine RBC (Auto) 21 Urine Mucus (Auto) RARE Urine Ascorbic Acid NEGATIVE POC Stool Occult Blood POSITIVE Hemoccult was positive. Discussed case with my attending physician who recommends no further work-up at this time. Patient will be started on a course of steroids for Crohn's flareup. He needs to follow-up with gastroenterology, this was reiterated with the patient who verbalized understanding and agreement with same. The patient's emergency department workup and current diagnosis were explained to the patient and or family. Follow-up instructions were provided. Medications if prescribed were discussed. Instructions for when to return to the emergency department including specific worrisome symptoms were discussed with the patient and/or family. - Vital Signs Vital signs: Temp Pulse Resp BP Pulse Ox 98.7 F 82 21 H 118/74 99 03/24/19 19:11 03/24/19 19:11 03/24/19 21:37 03/24/19 21:37 03/24/19 21:37 - Laboratory Result Diagrams: 03/24/19 19:46 03/24/19 19:46 Laboratory results interpreted by me: 03/24/19 03/24/19 19:46 19:46 WBC 10.9 H Urine Blood MODERATE H Urine Urobilinogen 2.0 H Discharge - Discharge Clinical Impression: Exacerbation of Crohn's disease Qualifiers: Digestive disease complication type: with rectal bleeding Qualified Code(s): K50.911 - Crohn's disease, unspecified, with rectal bleeding Condition: Stable Disposition: HOME, SELF-CARE Additional Instructions: Crohn's Disease Crohn's disease is an inflammatory disease of the intestines, affecting both the large and small intestine. The cause is unknown. Often there is vague abdominal pain and diarrhea for years before the diagnosis is made. The disease causes spotty thickening and inflammation of the bowel wall. With Crohn's disease, rectal fissures and abscesses are common. So is perforation of the bowel and internal abscess. The disease tends to flare spontaneously, then quiet down again. It never goes away completely. There is no cure for Crohn's disease. Acute flare-ups can be treated with steroids (such as prednisone), sometimes in combination with other medicines. Antibiotics (usually metronidazole) are often helpful. Sulfasalazine can ease the inflammation during flare-ups. Antidiarrhea medicine is taken as needed. Surgery may be needed for intestinal blockage, perforation, or hemorrhage. But surgery doesn't cure the disease -- it comes back in other places. Crohn's disease can cause immune disease in other body parts. Some patients will develop eye inflammation, arthritis, stiffened spine, liver inflammation, or skin disease. Kidney stones are more common in Crohn's patients. Lactose intolerance is common. There is a significant risk of developing a bowel tumor. Call the doctor if you have increasing abdominal pain, repeated vomiting, fever, rectal bleeding, or worsening diarrhea. Your work-up in the emergency department today suggests a Crohn's flareup. Please take medication as prescribed. It is very important for you to follow-up with a financial analyst accountant. A phone # is below. Return to the emergency department for any new or worsening symptoms as outlined above. Prescriptions: Prednisone [Sterapred Ds] 1 pkg PO ASDIR PRN 12 Days [id number].[email or web address] PRN Reason: Referrals: ELLIOT SEVERINO MD [ACTIVE STAFF] - Follow up as needed GARRY PARRA MD [ACTIVE STAFF] - Follow up as needed
[2019-03-24] MEDS ORDERED: KETOROLAC TROMETHAMINE INJ/PF 30 MG/1 ML SDV IV ONE (21:11)
[2019-03-24] MEDS ORDERED: METHYLPREDNISOLONE INJ 125 MG/2 ML SDV IV ONE (21:23)
[2019-03-24 21:47] VITALS: BP 118/74
== END 2019-03-24 21:48 | disposition home or self-care (01) ==
LOC: ER 18:54
DX: K50.911 Crohn's disease, unspecified, with rectal bleeding (principal); K64.4 Residual hemorrhoidal skin tags; F17.200 Nicotine dependence, unspecified, uncomplicated; Z85.47 Personal history of malignant neoplasm of testis; Z79.899 Other long term (current) drug therapy
CPT/HCPCS: 99283; 96361; 96374; 96375; 36415; 83690; 85025; 85610; 85730; 80053; 81001; J2930; J1885; J2405; J7030

== ENCOUNTER 2019-04-15 10:46 | Emergency (ER) | payer OTHER ==
[2019-04-15] MEDS ORDERED: ONDANSETRON HCL INJ/PF 4 MG/2 ML SDV IV ONE (11:20)
[2019-04-15] MEDS ORDERED: NORMAL SALINE 1000 ML 1,000 ML IV ONE (11:20)
--- NOTE | 2019-04-15 11:22 | ER Document Report ---
ED Medical Screen (RME) - General Stated Complaint: VOMITING BLOOD/BLOODY STOOLS Time Seen by Provider: 04/15/19 11:16 TRAVEL OUTSIDE OF THE [place] IN LAST 30 DAYS: No - HPI Notes: 04/15/19 11:21 33-year-old male presents to the emergency room for complaints of hemoptysis x1 day, right lower left lower quadrant abdominal pain with melena for the last month. Reports low-grade fevers. Patient does report a history of Crohn's dis ease, low concern patient was that he started vomiting blood this morning which is not common with his Crohn's disease. Patient has yet to establish care with a tin dipper. Denies any trauma, denies being on any blood thinners. Has not tried any [id number] medication. I have greeted and performed a rapid initial assessment of this patient. A comprehensive ED assessment and evaluation of the patient, analysis of test results and completion of the medical decision making process will be conducted by additional ED providers. PHYSICAL EXAMINATION: GENERAL: Well-appearing, well-nourished and in no acute distress. HEAD: Atraumatic, normocephalic. CV: s1, s2 regular abd: LLQ, RLQ abd pain LUNGS: No respiratory distress Musculoskeletal: Normal range of motion NEUROLOGICAL: Normal speech, normal gait. SKIN: Warm, Dry, normal turgor, no rashes or lesions noted. - Related Data Allergies/Adverse Reactions: No Known Allergies Allergy (Verified 04/15/19 11:14) Past Medical History - Social History Chew tobacco use (# tins/day): No Frequency of alcohol use: None Drug Abuse: None Renal/ Medical History: Denies: Hx Peritoneal Dialysis Malignancy Medical History: 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 Past Surgical History: Reports: Hx Abdominal Surgery - Bilateral inguinal hernia repair, Hx Genitourinary Surgery - x8 surgeries for undescended testicle, removed for torsion (right), Hx Testicular Surgery - Left testicle removed for cancer - Immunizations Immunizations up to date: Yes Physical Exam - Vital signs Vitals: Temp Pulse Resp BP Pulse Ox 97.7 F 90 18 149/90 H 97 04/15/19 10:54 04/15/19 10:54 04/15/19 10:54 04/15/19 10:54 04/15/19 10:54 Course - Vital Signs Vital signs: Temp Pulse Resp BP Pulse Ox 97.7 F 90 18 149/90 H 97 04/15/19 11:14 04/15/19 11:14 04/15/19 11:14 04/15/19 11:14 04/15/19 11:14
[2019-04-15 12:07] LABS: ABSOLUTE LYMPHOCYTES (AUTO) 1.5 10^3/uL (0.5-4.7); ABSOLUTE MONOCYTES (AUTO) 0.4 10^3/uL (0.1-1.4); ABSOLUTE NEUT (AUTO) 3.7 10^3/uL (1.7-8.2); APPEARANCE,URINE CLEAR; BASOPHILS % (AUTO) 0.4 % (0-2); BILIRUBIN,URINE NEGATIVE (NEGATIVE); COLOR,URINE YELLOW; EOSINOPHILS % (AUTO) 0.6 % (0-6); GLUCOSE, URINE NEGATIVE (NEGATIVE); HEMATOCRIT 39.8 % (37.9-51.0); HEMOGLOBIN 13.7 g/dL (13.5-17.0); KETONES,URINE NEGATIVE (NEGATIVE); LEUKOCYTE ESTERASE,URINE NEGATIVE (NEGATIVE); LYMPHOCYTES % (AUTO) 26.9 % (13-45); MEAN CORPUSCULAR HEMOGLOBIN 29.2 pg (27.0-33.4); MEAN CORPUSCULAR HGB CONC 34.6 g/dL (32.0-36.0); MEAN CORPUSCULAR VOLUME 84 fl (80-97); MONOCYTES % (AUTO) 7.5 % (3-13); NITRITE,URINE NEGATIVE (NEGATIVE); PLATELET COUNT 266 10^3/uL (150-450); PROTEIN,URINE NEGATIVE (NEGATIVE); RED BLOOD COUNT 4.71 10^6/uL (4.35-5.55); RED CELL DISTRIBUTION WIDTH 13.1 % (11.5-14.0); SEGMENTED NEUTROPHILS % (AUTO) 64.6 % (42-78); TOTAL CELLS COUNTED % (AUTO) 100 %; URINE SPECIFIC GRAVITY 1.017; UROBILINOGEN,URINE NEGATIVE mg/dL (<2.0); WHITE BLOOD COUNT 5.7 10^3/uL (4.0-10.5)
[2019-04-15 12:25] LABS: ALBUMIN 3.4 g/dL (3.5-5.0); ALKALINE PHOSPHATASE 58 U/L (38-126); ANION GAP 6 (5-19); ASPARTATE AMINO TRANSFERASE 22 U/L (17-59); BILIRUBIN,DIRECT 0.1 mg/dL (0.0-0.4); BILIRUBIN,TOTAL 0.5 mg/dL (0.2-1.3); BLOOD UREA NITROGEN 11 mg/dL (7-20); CARBON DIOXIDE 29 mmol/L (22-30); CHLORIDE 104 mmol/L (98-107); GLUCOSE 94 mg/dL (75-110); POTASSIUM 4.2 mmol/L (3.6-5.0); TOTAL PROTEIN 5.9 g/dL (6.3-8.2)
--- NOTE | 2019-04-15 12:25 | ER Document Report ---
ED General - General Chief Complaint: Nausea/Vomiting Stated Complaint: VOMITING BLOOD/BLOODY STOOLS Time Seen by Provider: 04/15/19 11:16 Primary Care Provider: ELLIOT SEVERINO MD [ACTIVE STAFF] - Follow up in 3-5 days TRAVEL OUTSIDE OF THE [place] IN LAST 30 DAYS: No - HPI Notes: 33-year-old male to the emergency department with complaints hematemesis that began this morning. He has had 2 episodes of blood-streaked vomit this morning. He also reports that he has been having left lower quadrant abdominal pain for the past week with associated diarrhea and fevers. He states that his fevers have had a T-max of 101. He states that he has a history of Crohn's but is not currently on any medication. He has a plan to follow-up with ARTHUR Moore, in the end of April. He denies smoking. He denies any recent travel. He denies any recent antibiotic use. He denies any other complaints. He has never had him out emesis with his Crohn's before. He denies any diarrhea with blood in it. 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 Past Surgical History: Reports: Hx Abdominal Surgery - Bilateral inguinal hernia repair, Hx Genitourinary Surgery - x8 surgeries for undescended testicle, removed for torsion (right), Hx Testicular Surgery - Left testicle removed for cancer - Immunizations Immunizations up to date: Yes Review of Systems - Review of Systems Constitutional: Chills, Fever EENT: No symptoms reported Cardiovascular: denies: Chest pain, Palpitations, Orthopnea, Dyspnea, Syncope, Dizziness, Lightheaded Respiratory: denies: Cough, Short of breath Gastrointestinal: See HPI, Abdominal pain, Diarrhea, Nausea, Vomiting, Blood in vomit. denies: Blood streaked bowels, Rectal bleeding Genitourinary: No symptoms reported Male Genitourinary: No symptoms reported Musculoskeletal: No symptoms reported Skin: No symptoms reported Hematologic/Lymphatic: No symptoms reported Neurological/Psychological: No symptoms reported -: Yes All other systems reviewed and negative Physical Exam - Vital signs Vitals: Temp Pulse Resp BP Pulse Ox 97.7 F 90 18 149/90 H 97 04/15/19 10:54 04/15/19 10:54 04/15/19 10:54 04/15/19 10:54 04/15/19 10:54 Interpretation: Normal - General General appearance: Alert In distress: None Notes: appear uncomfortable but in no acute distress - HEENT Head: Normocephalic, Atraumatic Eyes: Normal Pupils: PERRL - Respiratory Respiratory status: No respiratory distress Chest status: Nontender Breath sounds: Normal. No: Rales, Rhonchi, Stridor, Wheezing Chest palpation: Normal - Cardiovascular Rhythm: Regular Heart sounds: Normal auscultation Murmur: No - Abdominal Inspection: Obese Distension: No distension Bowel sounds: Normal Tenderness: Tender - + TTP over the LLQ with no rebound or guarding. mild suprapubic TTP. Negative Cantu's and McBurney's point. Organomegaly: No organomegaly - Back Back: Normal, Nontender. 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 No: Pronator drift Sensory: Normal - Psychological Associated symptoms: Normal affect, Normal mood - Skin Skin Temperature: Warm Skin Moisture: Dry Skin Color: Normal Course - Re-evaluation Re-evalutation: Abdomen/Pelvis CT 04/15/19 12:26 IMPRESSION: 1. No acute CT findings of the abdomen or pelvis to explain pain. 2. There is mild fatty mural stratification of the cecal base and terminal ileum, in keeping with reported history of Crohn's disease. No evidence of acute inflammation or complication such as stricture, fistula, or abscess. Impression: Nausea vomiting likely 2 episodes of hematic emesis was related to retching and a small Crystal-Tong tear. H&H are very stable. Fecal occult is negative. CT with no acute findings for colitis, abscess, perforation, bowel obstruction. Patient is feeling better after fluids and Zofran. I have encouraged him to call his GI specialist for sooner appointment. Will start on a steroid burst as well as antiemetics. Do not think that antibiotics are warranted at this time. Will have patient return if his symptoms worsen. He agrees with the plan. - Vital Signs Vital signs: Temp Pulse Resp BP Pulse Ox 98.0 F 82 17 119/77 100 04/15/19 15:49 04/15/19 15:49 04/15/19 15:49 04/15/19 15:49 04/15/19 15:49 - Laboratory Result Diagrams: 04/15/19 11:25 04/15/19 11:25 Laboratory results interpreted by me: 04/15/19 11:25 Total Protein 5.9 L Albumin 3.4 L Discharge - Discharge Clinical Impression: Crohn's disease Qualifiers: Gastrointestinal tract location: unspecified location Digestive disease com plication type: without complication Qualified Code(s): K50.90 - Crohn's disease, unspecified, without complications Diarrhea Qualifiers: Diarrhea type: unspecified type Qualified Code(s): R19.7 - Diarrhea, unspecified Nausea & vomiting Qualifiers: Vomiting type: unspecified Vomiting Intractability: non-intractable Qualified Code(s): R11.2 - Nausea with vomiting, unspecified Condition: Stable Disposition: HOME, SELF-CARE Instructions: Crohn's Disease ([facility]), Diarrhea, Nonspecific ([facility]), Vomiting ([facility]) Additional Instructions: CALL DR. SEVERINO TOMORROW. TAKE MEDICINES PRESCRIBED. COMPLETE STEROIDS. RETURN IF WORSENING SYMPTOMS. Prescriptions: Ondansetron [Zofran Odt 4 mg Tablet] 1 - 2 tab PO Q4HP PRN #10 tab.rapdis PRN Reason: Prednisone 50 mg PO DAILY #5 tablet Forms: Return to Work Referrals: ELLIOT SEVERINO MD [ACTIVE STAFF] - Follow up in 3-5 days
[2019-04-15] MEDS ORDERED: MORPHINE SULFATE 10 MG/ML INJ IV ONE (12:43)
[2019-04-15] MEDS ORDERED: ONDANSETRON HCL INJ/PF 4 MG/2 ML SDV ONE (13:41)
--- NOTE | 2019-04-15 14:46 | RADIOLOGY REPORT (SQ) ---
EXAM DESCRIPTION: CT ABD/PELVIS WITH IV ONLY COMPLETED DATE/TIME: 04/15/2019 2:35 pm REASON FOR STUDY: vomiting, abd pain, fever, hx of crohns COMPARISON: 03/06/2019 TECHNIQUE: CT scan of the abdomen and pelvis performed using helical scanning technique with dynamic intravenous contrast injection. No oral contrast. Images reviewed with lung, soft tissue, and bone windows. Reconstructed coronal and sagittal MPR images reviewed. Delayed images for evaluation of the urinary system also acquired. All images stored on PACS. All CT scanners at this facility use dose modulation, iterative reconstruction, and/or weight based d osing when appropriate to reduce radiation dose to as low as reasonably achievable (ALARA). [facility]: Dose Right [facility]: CareDose [facility]: Dose Right [facility]: Teradose 4D [facility]: aXess [place] CONTRAST TYPE AND DOSE: contrast/concentration: Isovue 350.00 mg/ml; Total Contrast Delivered: 100.0 ml; Total Saline Delivered: 72.0 ml RENAL FUNCTION: None required. The patient is less than 50 years old. RADIATION DOSE: CT Rad equipment meets quality standard of care and radiation dose reduction techniq ues were employed. CTDIvol: NaN - NaN mGy. DLP: 0 mGy-cm.. LIMITATIONS: None. FINDINGS: LOWER CHEST: No significant findings. No nodules or infiltrates. LIVER: Normal size. No masses. No dilated ducts. SPLEEN: Normal size. No focal lesions. PANCREAS: No masses. No significant calcifications. No adjacent inflammation or peripancreatic fluid collections. Pancreatic duct not dilated. GALLBLADDER: No identified stones by CT criteria. No inflammatory changes to suggest cholecystitis. ADRENAL GLANDS: No significant masses or asymmetry. RIGHT KIDNEY AND URETER: No solid masses. No significant calcifications. No hydronephrosis or hyd roureter. LEFT KIDNEY AND URETER: No solid masses. No significant calcifications. No hydronephrosis or hydr oureter. AORTA AND VESSELS: No aneurysm. No dissection. Renal arteries, SMA, celiac without stenosis. RETROPERITONEUM: No retroperitoneal adenopathy, hemorrhage or masses. BOWEL AND PERITONEAL CAVITY: No masses or acute inflammatory changes. There is mild fatty mural stra tification of the cecal base and terminal ileum. No free fluid or peritoneal masses. APPENDIX: Normal. PELVIS: No mass. No free fluid. Normal bladder. ABDOMINAL WALL: No masses. No hernias. BONES: No significant or acute findings. OTHER: No other significant finding. IMPRESSION: 1. No acute CT findings of the abdomen or pelvis to explain pain. 2. There is mild fatty mural stratification of the cecal base and terminal ileum, in keeping with rep orted history of Crohn's disease. No evidence of acute inflammation or complication such as strictur e, fistula, or abscess. TECHNICAL DOCUMENTATION: JOB ID: [id number] Quality ID # [id number]: Final reports with documentation of one or more dose reduction techniques (e.g., Au tomated exposure control, adjustment of the mA and/or kV according to patient size, use of iterative reconstruction technique) 2010 [employer]- All Rights Reserved Reading location - IP/workstation name: [email or web address]
[2019-04-15 15:50] VITALS: BP 119/77
[2019-04-15 20:02] LABS: C DIFFICILE GDH NEGATIVE (NEGATIVE)
== END 2019-04-15 16:37 | disposition home or self-care (01) ==
LOC: ER 10:46
DX: K50.90 Crohn's disease, unspecified, without complications (principal); R19.7 Diarrhea, unspecified; K92.0 Hematemesis; R10.32 Left lower quadrant pain; R10.814 Left lower quadrant abdominal tenderness; R50.9 Fever, unspecified; Z85.47 Personal history of malignant neoplasm of testis
CPT/HCPCS: 36415; 83690; 85025; 80053; 81001; 87324; 87449; 74177; J2270; J2405; J7030; 96361; 96374; 96375; 99284

== ENCOUNTER 2019-08-16 15:19 | Emergency (ER) | payer BC ==
--- NOTE | 2019-08-16 15:43 | ER Document Report ---
ED Medical Screen (RME) - General Chief Complaint: Overdose Stated Complaint: POSSIBLE OVERDOSE Time Seen by Provider: 08/16/19 15:39 Mode of Arrival: Wheelchair Information source: Patient Notes: 34-year-old male presented to ED for stating that he took 40 Benadryl about an hour ago. He states they were 25 mg tablets. He states he found out that the child that he thought was his daughter is not his child. He states she is about a year and a half old. He states he became very upset and wanted to get his mind off of what was going on. He states he does not smoke cigarettes he is a former smoker he does drink about once a year and smokes a little bit of weed. He states he does have a history of bipolar and testicular cancer with movable of the testicle. He states he is on Latuda for his bipolar. I did speak with [employer]. He is alert oriented answering all questions appropriately pupils equal and react to light vital signs are stable at this time. She states he does not fit the picture of someone that is taking 4025 mg Benadryl's. She states that he would need EKG monitoring chemistries and Tylenol levels. She states of his vital signs which remain normal that he will just need a very assessed for mental health. She states she will be calling back to check on his status. I did speak to Ifeoma at [employer]. I have greeted and performed a rapid initial assessment of this patient. A comprehensive ED assessment and evaluation of the patient, analysis of test results and completion of medical decision making process will be conducted by an additional ED providers. TRAVEL OUTSIDE OF THE [place] IN LAST 30 DAYS: No - Related Data Allergies/Adverse Reactions: No Known Allergies Allergy (Verified 04/15/19 11:14) Past Medical History - Social History Frequency of alcohol use: None Drug Abuse: Marijuana Renal/ Medical History: Denies: Hx Peritoneal Dialysis Malignancy Medical History: 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 Past Surgical History: Reports: Hx Abdominal Surgery - Bilateral inguinal hernia repair, Hx Genitourinary Surgery - x8 surgeries for undescended testicle, removed for torsion (right), Hx Testicular Surgery - Left testicle removed for cancer - Immunizations Immunizations up to date: Yes Physical Exam - Vital signs Vitals: Temp Pulse Resp BP Pulse Ox 97.6 F 106 H 16 147/91 H 98 04/20/20 15:29 08/16/19 15:29 08/16/19 15:29 08/16/19 15:29 08/16/19 15:29 Course - Vital Signs Vital signs: Temp Pulse Resp BP Pulse Ox 97.6 F 106 H 16 147/91 H 98 08/16/19 15:29 08/16/19 15:29 08/16/19 15:29 08/16/19 15:29 08/16/19 15:29
--- NOTE | 2019-08-16 15:51 | ER Document Report ---
ED Psych Disorder / Suicide - General Chief Complaint: Overdose Stated Complaint: POSSIBLE OVERDOSE Time Seen by Provider: 08/16/19 15:39 Mode of Arrival: Wheelchair Information source: Patient Notes: Patient is a 34-year-old male presenting to the emergency department chief complaint of overdose. Patient reports he took 40 tablets of 25 mg Benadryl at approximately 1430 today. He states that he did this to get his mind off of the fact that he found out his child is not in fact his. Please see E note. Poison control was contacted by [facility] provider, please see her note. Patient denies any suicidal intent, he does report history of bipolar and states that he is compliant with his Latuda. TRAVEL OUTSIDE OF THE [place] IN LAST 30 DAYS: No - Related Data Allergies/Adverse Reactions: No Known Allergies Allergy (Verified 04/15/19 11:14) Past Medical History - General Information source: Patient - Social History Smoking Status: Never Smoker Frequency of alcohol use: None Drug Abuse: Marijuana Family History: Reviewed & Not Pertinent Patient has suicidal ideation: No Patient has homicidal ideation: No Renal/ Medical History: Denies: Hx Peritoneal Dialysis Malignancy Medical History: 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 Psychiatric Medical History: Reports: Hx Bipolar Disorder Past Surgical History: Reports: Hx Abdominal Surgery - Bilateral inguinal hernia repair, Hx Genitourinary Surgery - x8 surgeries for undescended testicle, removed for torsion (right), Hx Testicular Surgery - Left testicle removed for cancer - Immunizations Immunizations up to date: Yes Review of Systems - Review of Systems Constitutional: No symptoms reported EENT: No symptoms reported Cardiovascular: No symptoms reported Respiratory: No symptoms reported Gastrointestinal: No symptoms reported Genitourinary: No symptoms reported Male Genitourinary: No symptoms reported Musculoskeletal: No symptoms reported Skin: No symptoms reported Hematologic/Lymphatic: No symptoms reported Neurological/Psychological: No symptoms reported Physical Exam - Vital signs Vitals: Temp Pulse Resp BP Pulse Ox 97.6 F 106 H 16 147/91 H 98 08/16/19 15:29 08/16/19 15:29 08/16/19 15:29 08/16/19 15:29 08/16/19 15:29 - Notes Notes: PHYSICAL EXAMINATION: GENERAL: Well-appearing, well-nourished and in no acute distress. HEAD: Atraumatic, normocephalic. EYES: Pupils equal round and reactive to light, extraocular movements intact, sclera anicteric, conjunctiva are normal. ENT: Nares patent, oropharynx clear without exudates. Moist mucous membranes. NECK: Normal range of motion, supple without lymphadenopathy LUNGS: Breath sounds clear to auscultation bilaterally and equal. No wheezes rales or rhonchi. HEART: Regular rate and rhythm without murmurs ABDOMEN: Soft, nontender, nondistended abdomen. No guarding, no rebound. No masses appreciated. Musculoskeletal: Normal range of motion, no pitting or edema. No cyanosis. NEUROLOGICAL: Cranial nerves grossly intact. Normal speech, normal gait. Normal sensory, motor exams PSYCH: Flat affect, cooperative. SKIN: Warm, Dry, normal turgor, no rashes or lesions noted. Course - Re-evaluation Re-evalutation: 08/16/19 16:20 Patient presents to the emergency department after a possible medication overdose. Patient allegedly took 40 tablets of 25 mg Benadryl approximately an hour prior to arrival. Patient is awake, alert, speaking in full and complete sentences, he denies any suicidal intent. 08/16/19 19:36 All labs have resulted. Poison control called and spoke with the nurse, they have close the case. Patient's work-up today has been reassuring. He is medically cleared from this point. Psych did place him on a 24-hour petition. - Vital Signs Vital signs: Temp Pulse Resp BP Pulse Ox 97.6 F 106 H 18 155/84 H 100 08/16/19 15:29 08/16/19 15:29 08/16/19 19:00 08/16/19 18:01 08/16/19 19:00 - Laboratory Result Diagrams: 08/16/19 15:50 08/16/19 15:50 Laboratory results interpreted by me: 08/16/19 08/16/19 15:50 15:50 WBC 12.1 H Absolute Neuts (auto) 9.2 H Salicylates < 1.0 L Acetaminophen < 10 L Discharge - Discharge Clinical Impression: Overdose Qualifiers: Encounter type: initial encounter Injury intent: undetermined intent Qualified Code(s): T50.904A - Poisoning by unspecified drugs, medicaments and biological substances, undetermined, initial encounter Condition: Stable Disposition: PSYCH HOSP/UNIT
[2019-08-16 16:09] LABS: ABSOLUTE BASOPHILS # (AUTO) 0.1 10^3/uL (0.0-0.2); ABSOLUTE EOSINOPHILS # (AUTO) 0.2 10^3/uL (0.0-0.6); ABSOLUTE LYMPHOCYTES (AUTO) 2.1 10^3/uL (0.5-4.7); ABSOLUTE MONOCYTES (AUTO) 0.6 10^3/uL (0.1-1.4); ABSOLUTE NEUT (AUTO) 9.2 10^3/uL (1.7-8.2); BASOPHILS % (AUTO) 0.6 % (0-2); EOSINOPHILS % (AUTO) 1.4 % (0-6); HEMOGLOBIN 13.5 g/dL (13.5-17.0); LYMPHOCYTES % (AUTO) 17.3 % (13-45); MEAN CORPUSCULAR HEMOGLOBIN 28.1 pg (27.0-33.4); MEAN CORPUSCULAR HGB CONC 34.7 g/dL (32.0-36.0); MEAN CORPUSCULAR VOLUME 81 fl (80-97); MONOCYTES % (AUTO) 5.1 % (3-13); PLATELET COUNT 378 10^3/uL (150-450); RED BLOOD COUNT 4.82 10^6/uL (4.35-5.55); RED CELL DISTRIBUTION WIDTH 13.4 % (11.5-14.0); SEGMENTED NEUTROPHILS % (AUTO) 75.6 % (42-78); TOTAL CELLS COUNTED % (AUTO) 100 %; WHITE BLOOD COUNT 12.1 10^3/uL (4.0-10.5)
[2019-08-16 16:28] LABS: ACETAMINOPHEN < 10 ug/mL (10-30); ALBUMIN 4.2 g/dL (3.5-5.0); ALCOHOL < 10 mg/dL (NONE DETECTED); ALKALINE PHOSPHATASE 100 U/L (38-126); ANION GAP 7 (5-19); ASPARTATE AMINO TRANSFERASE 19 U/L (17-59); BILIRUBIN,TOTAL 0.4 mg/dL (0.2-1.3); BLOOD UREA NITROGEN 11 mg/dL (7-20); CALCIUM 9.5 mg/dL (8.4-10.2); CARBON DIOXIDE 27 mmol/L (22-30); CHLORIDE 103 mmol/L (98-107); GLUCOSE 103 mg/dL (75-110); POTASSIUM 4.1 mmol/L (3.6-5.0); SALICYLATE < 1.0 mg/dL (2.0-20.0); TOTAL PROTEIN 7.4 g/dL (6.3-8.2)
[2019-08-16 17:27] LABS: APPEARANCE,URINE CLEAR; BILIRUBIN,URINE NEGATIVE (NEGATIVE); COLOR,URINE STRAW; GLUCOSE, URINE NEGATIVE (NEGATIVE); KETONES,URINE NEGATIVE (NEGATIVE); LEUKOCYTE ESTERASE,URINE NEGATIVE (NEGATIVE); NITRITE,URINE NEGATIVE (NEGATIVE); PROTEIN,URINE NEGATIVE (NEGATIVE); URINE SPECIFIC GRAVITY 1.008; UROBILINOGEN,URINE NEGATIVE mg/dL (<2.0)
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
[2019-08-16 17:52] LABS: URINE AMPHETAMINES SCREEN NEGATIVE; URINE BARBITURATES SCREEN NEGATIVE; URINE BENZODIAZEPINES SCREEN NEGATIVE; URINE COCAINE SCREEN NEGATIVE; URINE MARIJUANA (THC) SCREEN NEGATIVE; URINE METHADONE SCREEN NEGATIVE; URINE PHENCYCLIDINE SCREEN NEGATIVE
[2019-08-16] MEDS: OLANZAPINE 2.5 MG TABLET PO SCH (18:50)
[2019-08-16] MEDS ORDERED: LURASIDONE HCL 40 MG TABLET PO SCH (22:00)
--- NOTE | 2019-08-16 22:48 | EKG REPORT ---
SEVERITY:- OTHERWISE NORMAL ECG - SINUS TACHYCARDIA : Confirmed by: Marjorie Delgado 16-Aug-2019 22:47:27
[2019-08-17] MEDS: OLANZAPINE 2.5 MG TABLET PO SCH (10:17)
--- NOTE | 2019-08-17 12:55 | ER Document Report ---
Doctor's Note Notes: 08/17/19 11:54 PHYSICAL EXAMINATION: GENERAL: Well-appearing and in no acute distress. HEAD: Atraumatic, normocephalic. EYES: sclera anicteric, conjunctiva are normal. ENT: nares patent. Moist mucous membranes. NECK: Normal range of motion, supple without lymphadenopathy LUNGS: CTAB and equal. No wheezes rales or rhonchi. HEART: Regular rate and rhythm without murmurs EXTREMITIES: Normal range of motion, no pitting edema. No cyanosis. BACK: No CVA tenderness NEUROLOGICAL: Cranial nerves grossly intact. Normal speech. PSYCH: Normal mood, normal affect. SKIN: Warm, Dry, normal turgor, no rashes or lesions noted 08/17/19 15:04 Patient is medically clear for discharge. Mental health team evaluated patient and patient no longer meets IVC criteria at this time. Recommendations are for Latuda to be decreased to 20 mg p.o. nightly, to add Zyprexa 2.5 mg p.o. twice daily and add BuSpar 5 mg p.o. twice daily. Patient is agreeable with discharge plan of care at this time.
[2019-08-17] MEDS ORDERED: BUSPIRONE HCL 10 MG TABLET PO ONE (14:21)
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
[2019-08-17 15:46] VITALS: BP 142/87
== END 2019-08-17 15:17 | disposition home or self-care (01) ==
LOC: ER 15:19
DX: T45.0X4A Poisoning by antiallergic and antiemetic drugs, undetermined, initial encounter (principal); F31.9 Bipolar disorder, unspecified; Z79.899 Other long term (current) drug therapy; F12.10 Cannabis abuse, uncomplicated; Z85.47 Personal history of malignant neoplasm of testis
CPT/HCPCS: 93005; 99285; 36415; 80307 ×4; 85025; 80053; 81001; 93010; J3490 ×3

== ENCOUNTER 2019-12-29 18:56 | Emergency (ER) | payer BC ==
[2019-12-29] MEDS ORDERED: HALOPERIDOL LACTATE INJ 5 MG/1 ML VIAL IM ONE (20:14)
[2019-12-29] MEDS ORDERED: LORAZEPAM INJ 2 MG/1 ML VIAL IM ONE (20:14)
--- NOTE | 2019-12-29 20:21 | ER Document Report ---
ED General - General Chief Complaint: Psych Problem Stated Complaint: PSYCH Mode of Arrival: Ambulatory Information source: Patient, Relative Cannot obtain history due to: Altered mental status Notes: Patient is a 34-year-old male presenting to the emergency department chief complaint of altered mental status. Patient's girlfriend is at bedside and states that the patient does have a prior history of bipolar disease has been hallucinating for the past 2 weeks but much worse since 4 PM today. Patient does report seeing shadow people, he is working on a computer that is not there while I am doing my examination. Remainder of history of present illness and review of systems is from the girlfriend because the patient is not answering any questions and is very uncooperative. TRAVEL OUTSIDE OF THE [place] IN LAST 30 DAYS: No - HPI Onset: This afternoon Onset/Duration: Persistent, Worse Quality of pain: No pain Severity: None Associated symptoms: Slow to respond Exacerbated by: Denies Relieved by: Denies Similar symptoms previously: Yes Recently seen / treated by doctor: No - Related Data Allergies/Adverse Reactions: No Known Allergies Allergy (Verified 04/15/19 11:14) Home Medications: Rexalti. Vistaril Past Medical History - General Information source: Patient, Relative - Social History Smoking Status: Current Every Day Smoker Cigarette use (# per day): Yes Chew tobacco use (# tins/day): No Smoking Education Provided: Yes Frequency of alcohol use: None Drug Abuse: Marijuana Lives with: Spouse/Significant other Family History: Reviewed & Not Pertinent Patient has suicidal ideation: No Patient has homicidal ideation: No Renal/ Medical History: Reports: Other - Testicular cancer. Denies: Hx Peritoneal Dialysis Malignancy Medical History: 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 GI Medical History: Reports: Hx Crohn's Disease Psychiatric Medical History: Reports: Hx Bipolar Disorder Past Surgical History: Reports: Hx Abdominal Surgery - Bilateral inguinal hernia repair, Hx Genitourinary Surgery - x8 surgeries for undescended testicle, removed for torsion (right), Hx Testicular Surgery - Left testicle removed for cancer - Immunizations Immunizations up to date: Yes Review of Systems - Review of Systems Constitutional: No symptoms reported EENT: No symptoms reported Cardiovascular: No symptoms reported Respiratory: No symptoms reported Gastrointestinal: No symptoms reported Genitourinary: No symptoms reported Male Genitourinary: No symptoms reported Musculoskeletal: No symptoms reported Skin: No symptoms reported Hematologic/Lymphatic: No symptoms reported Neurological/Psychological: See HPI -: Yes All other systems reviewed and negative Physical Exam - Vital signs Vitals: Temp Pulse Resp BP Pulse Ox 97.9 F 88 18 137/87 H 97 12/30/19 06:30 12/30/19 06:30 12/30/19 06:30 12/30/19 06:30 12/30/19 06:30 - Notes Notes: PHYSICAL EXAMINATION: GENERAL: Well-appearing, well-nourished and in no acute distress. HEAD: Atraumatic, normocephalic. EYES: Pupils equal round and reactive to light, extraocular movements intact, sclera anicteric, conjunctiva are normal. ENT: nares patent, oropharynx clear without exudates. Moist mucous membranes. NECK: Normal range of motion, supple without lymphadenopathy, no appreciable JVD LUNGS: Lungs clear to auscultation bilaterally and equal. No wheezes rales or rhonchi. HEART: Tachycardic rate and rhythm without murmurs ABDOMEN: Soft, morbidly obese nontender, normal bowel sounds. No guarding, no rebound. No masses appreciated. EXTREMITIES: Active full range of motion, no pitting or edema. No cyanosis. 2+ pulses x4 Psychiatric: Patient is obviously altered is interacting with objects that are not present in the room patient is not answering questions follows minimal comm ands as requested. NEUROLOGICAL: No focal neurological deficits. Moves all extremities spontaneous ly and on command. SKIN: Warm, Dry, and intact. Normal turgor, no rashes or lesions noted. Course - Re-evaluation Re-evalutation: 12/29/19 20:21 Patient will be worked up and seen eventually is. Because of the patient's severely agitated condition at this point patient will receive 5 mg IM Haldol and 2 mg IM Ativan. 12/30/19 10:13 Patient was medically cleared and ready for further evaluation treatment and disposition as deemed necessary by mental health services. Please see nighttime physician's note for further management. - Vital Signs Vital signs: Temp Pulse Resp BP Pulse Ox 97.9 F 88 18 137/87 H 97 12/30/19 06:30 12/30/19 06:30 12/30/19 06:30 12/30/19 06:30 12/30/19 06:30 - Laboratory Result Diagrams: 12/30/19 01:37 12/30/19 01:37 Laboratory results interpreted by me: 12/30/19 12/30/19 12/30/19 01:37 01:37 06:37 WBC 13.2 H MCV 79 L MCH 26.2 L RDW 15.9 H Lymph % (Auto) 12.9 L Absolute Neuts (auto) 10.7 H Seg Neutrophils % 81.2 H Glucose 114 H AST 68 H Urine Blood SMALL H Salicylates < 1.0 L Acetaminophen < 10 L Discharge - Discharge Clinical Impression: Hallucinations Bipolar disorder Qualifiers: Active/Remission status: currently active Current bipolar episode type: manic Current episode severity: moderate Qualified Code(s): F31.12 - Bipolar disorder, current episode manic without psychotic features, moderate Condition: Stable Disposition: OTHER
[2019-12-29] MEDS ORDERED: ZIPRASIDONE MESYLATE INJ/PF 20 MG SDV IM ONE (22:31)
--- NOTE | 2019-12-29 23:38 | ER Document Report ---
ED General - General Mode of Arrival: Ambulatory TRAVEL OUTSIDE OF THE [place] IN LAST 30 DAYS: No - Related Data Home Medications: Rexalti. Vistaril <TAMI RICHARD - Last Filed: 12/30/19 06:21> <CALEB ROCHA - Last Filed: 12/31/19 12:55> - General Chief Complaint: Psych Problem Stated Complaint: PSYCH Time Seen by Provider: 12/29/19 23:33 Primary Care Provider: Becky Yeung [Outside] - Follow up as needed - HPI Notes: Patient is a 34-year-old male, with a known diagnosis of bipolar disorder, possible working diagnosis of schizophrenia, who was brought to the emergency department for evaluation by his girlfriend. She is the primary historian. He has been hallucinating over the last 2 weeks, but it has become significantly worse as of today. He is having obvious visual hallucinations, has been carrying on conversations with his father who has . He has been easily agitated. The patient is currently taking Rexulti, as well as Vistaril as needed for anxiety. He has not reported any pain. Patient's girlfriend states that he has not slept in the last 3 days. (TAMI RICHARD) - Related Data Allergies/Adverse Reactions: No Known Allergies Allergy (Verified 04/15/19 11:14) Past Medical History - General Information source: Patient, Friend - Social History Smoking Status: Current Every Day Smoker Cigarette use (# per day): Yes Chew tobacco use (# tins/day): No Frequency of alcohol use: None Drug Abuse: Marijuana Lives with: Spouse/Significant other Family History: Reviewed & Not Pertinent, Other - Schizophrenia in the family Patient has suicidal ideation: No Patient has homicidal ideation: No Renal/ Medical History: Denies: Hx Peritoneal Dialysis Malignancy Medical History: 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 GI Medical History: Reports: Hx Crohn's Disease Psychiatric Medical History: Reports: Hx Bipolar Disorder Past Surgical History: Reports: Hx Abdominal Surgery - Bilateral inguinal hernia repair, Hx Genitourinary Surgery - x8 surgeries for undescended testicle, removed for torsion (right), Hx Inguinal Hernia - Bilateral, Hx Testicular Surgery - Left orchiectomy - Immunizations Immunizations up to date: Yes <TAMI RICHARD - Last Filed: 12/30/19 06:21> Review of Systems - Review of Systems -: Yes ROS unobtainable due to patient's medical condition <TAMI RICHARD - Last Filed: 12/30/19 06:21> Physical Exam <TAMI RICHARD - Last Filed: 12/30/19 06:21> - Vital signs Vitals: Temp Pulse Resp BP Pulse Ox 97.9 F 88 18 137/87 H 97 12/30/19 06:30 12/30/19 06:30 12/30/19 06:30 12/30/19 06:30 12/30/19 06:30 - Notes Notes: This is a 34-year-old male who appears his stated age, in a moderate amount of distress. I was pulled into the room because the patient was agitated, continually trying to get out of bed. He had been previously medicated, but remained upright, was intermittently trying to resist security, trying to walk around the room. Intermittently he will stare off, as if responding to some sort of internal stimuli, and his breathing becomes more labored. These epis odes last between 30 and 90 seconds, then the patient's breathing returns to normal. Vital signs reviewed, please refer to chart. Head is normocephalic, atraumatic. Pupils equal round, reactive to light. Neck is supple without meningismus. Heart is regular rate and rhythm. Lungs are clear to auscultation bilaterally. Abdomen is soft, nontender, normoactive bowel sounds throughout. Extremities without cyanosis, clubbing. Posterior calves are nontender. Peripheral pulses are equal. Skin is warm and mildly diaphoretic. Patient is awake, alert, neurological exam is nonfocal. (TAMI RICHARD) Course - Laboratory Result Diagrams: 12/30/19 01:37 12/30/19 01:37 - Diagnostic Test Radiology reviewed: Image reviewed, Reports reviewed <TAMI RICHARD - Last Filed: 12/30/19 06:21> - Laboratory Result Diagrams: 12/30/19 01:37 12/30/19 01:37 <CALEB ROCHA - Last Filed: 12/31/19 12:55> - Re-evaluation Re-evalutation: 12/29/19 23:39 Patient presents to the emergency department for evaluation. He was initially seen by Dr. Alexey, but blood work had not yet been drawn, EKG had not been performed. I went into the room after the patient had been medicated, he had not yet had an EKG, but I did believe more medication was indicated. I was hesitant, but did eventually order Geodon to try and calm the patient. He rem ained agitated, actively hallucinating, and I did believe was a danger to security and himself. Decision was made to institute hard restraints. At that point, we were able to obtain labs, EKG. I have been in to reassess the patient twice since then. He is still resisting any sort of sleep. He is still clearly hallucinating. I do believe that some of this may be psychosis brought about by lack of sleep, will reassess for the ability to remove restraints shortly. Considering administration of Benadryl to help facilitate rest. We will continue to monitor. (TAMI RICHARD) 12/30/19 09:26 I reviewed patient's chart. He is no longer in restraints. Lab work nonact ionable, positive for benzodiazepines and marijuana although patient did receive benzodiazepines here last night for sedation given agitation and aggressiveness. He is currently resting in the bed in no distress awaiting psychiatric evaluation 12/31/19 12:53 Patient has been evaluated by the psychiatric team. He has much more lucid today he is eating breakfast in no distress I did evaluate the patient. He reports that he feels much better at this time, he has no concerns about harming himself or harming others, he is alert and oriented x3 and answering all questions appropriately. Medication changes recommended by psychiatric team, Zyprexa 2.5 mg twice daily, clonidine 0.2 mg at night, Cogentin 1 mg daily 2- week prescription and they are arranging outpatient follow-up for the patient (CALEB ROCHA) - Vital Signs Vital signs: Temp Pulse Resp BP Pulse Ox 98.3 F 69 18 136/76 H 100 12/31/19 06:00 12/31/19 06:00 12/31/19 06:00 12/31/19 06:00 12/31/19 06:00 - Laboratory Laboratory results interpreted by me: 12/30/19 12/30/19 12/30/19 01:37 01:37 06:37 WBC 13.2 H MCV 79 L MCH 26.2 L RDW 15.9 H Lymph % (Auto) 12.9 L Absolute Neuts (auto) 10.7 H Seg Neutrophils % 81.2 H Glucose 114 H AST 68 H Urine Blood SMALL H Salicylates < 1.0 L Acetaminophen < 10 L - Diagnostic Test Radiology results interpreted by me: 12/30/19 06:21 Chest X-Ray 12/29/19 23:38 IMPRESSION: Negative chest copyright 2011 [employer]- All Rights Reserved (TAMI RICHARD) - EKG Interpretation by Me Additional EKG results interpreted by me: 12/29/19 23:40 Sinus tachycardia with a rate of 115 bpm. Normal axis and intervals. No acute ST changes concerning for ischemia or infarction. (TAMI RICHARD) Discharge <TAMI RICHARD - Last Filed: 12/30/19 06:21> <CALEB ROCHA - Last Filed: 12/31/19 12:55> - Discharge Clinical Impression: Hallucinations Bipolar disorder Qualifiers: Active/Remission status: currently active Current bipolar episode type: manic Current episode severity: moderate Qualified Code(s): F31.12 - Bipolar disorder, current episode manic without psychotic features, moderate Condition: Stable Disposition: HOME, SELF-CARE Additional Instructions: You have been evaluated both medical and behavioral health teams have been deemed appropriate for discharge. Medication adjustments have been conducted. Please stop all home medications and take medications as follows: Zyprexa 2.5 mg twice daily clonidine 0.2 mg nightly Cogentin 1 mg daily Please follow-up with your outpatient mental health provider at your regular scheduled appointment. Bipolar Disorder Bipolar disorder is also called manic-depressive disorder. Depression alternates with brain hyperactivity called raymon. Each phase lasts from several days to a few weeks. We don't know exactly what causes bipolar disorder, but it's treatable. During the "manic phase," you may feel elated and energetic. You may have racing thoughts, rapid speech, increased activity, and grandiose ideas. During this time, you may not realize how poor your judgement is. Inappropriate spending, drug abuse, excessive alcohol use, marriage problems, and irresponsible sexual behavior are common during the manic phase. During the "depressive phase," you might feel depressed, guilty, worthless, fatigued, and unable to concentrate. You might have thoughts of suicide. Good treatments are available for bipolar disorder. [place] is a classic drug for bipolar disorder, and is still often useful. If the manic phase is very mild, an antidepressant alone can be prescribed. If the manic phase is very severe, an antipsychotic medicine (such as Haldol) may be needed. The treatment must be matched to your symptoms, so it's important to work closely with your psychiatric care provider. Contact your physician, the hospital emergency center, crisis line, or your counsellor if you are losing control or having self-destructive thoughts. Hallucinations You seem to be having hallucinations. Hallucinations are seeing, hearing, or feeling things that don't exist. These symptoms commonly occur with drug abuse and schizophrenia. Drugs like PCP, LSD, MDMA, peyote, and "psychedelic mushrooms" can cause frightening hallucinations. Users of methamphetamine or crack cocaine often see and feel bugs crawling on their skin. Patients with schizophrenia may hear voices that no one else can hear. The delusions of schizophrenia often involve conspiracies or relationships that are not real. When symptoms are due to drug abuse, the mental state usually improves as the drug wears off. Someone you trust should be with you until you are better, to protect you and calm your fears. Tranquilizer medicine is helpful at controlling hallucinations, anxiety, and deluded thoughts. Get a proper diet and enough sleep. Most patients do very well when they get proper medical treatment and social support. You should return at once if your symptoms get worse, if you are having suicidal thoughts or thoughts about hurting others, or if you feel that you are in danger. AT ANY TIME, IF YOUR SYMPTOMS CHANGE SIGNIFICANTLY OR WORSEN OR YOU DEVELOP NEW SYMPTOMS, RETURN TO THE EMERGENCY DEPARTMENT IMMEDIATELY FOR RE-EVALUATION. Prescriptions: Clonidine HCl [Catapres] 0.2 mg PO QHS #15 tablet Benztropine Mesylate [Cogentin 1 mg Tablet] 1 mg PO DAILY #15 tablet Olanzapine [Zyprexa 2.5 Mg Tablet] 2.5 mg PO BID #28 tablet Referrals: [facility] [Outside] - Follow up as needed
[2019-12-29] MEDS ORDERED: HYDROXYZINE HCL INJ 50 MG/1 ML VIAL IM ONE (23:53)
--- NOTE | 2019-12-30 00:20 | RADIOLOGY REPORT (SQ) ---
EXAM DESCRIPTION: XR CHEST 1 VIEW COMPLETED DATE/TME: 12/29/2019 23:38 CLINICAL HISTORY: 34 years, Male, Dyspnea COMPARISON: None. NUMBER OF VIEWS: 1 TECHNIQUE: Portable chest LIMITATIONS: None. FINDINGS: The heart size is normal. The lungs are clear. No pneumothorax IMPRESSION: Negative chest copyright 2011 [employer]- All Rights Reserved
[2019-12-30] MEDS ORDERED: MIDAZOLAM 2 MG/2 ML INJ IM ONE (01:27)
[2019-12-30 01:48] LABS: ABSOLUTE BASOPHILS # (AUTO) 0.1 10^3/uL (0.0-0.2); ABSOLUTE EOSINOPHILS # (AUTO) 0.1 10^3/uL (0.0-0.6); ABSOLUTE LYMPHOCYTES (AUTO) 1.7 10^3/uL (0.5-4.7); ABSOLUTE MONOCYTES (AUTO) 0.7 10^3/uL (0.1-1.4); ABSOLUTE NEUT (AUTO) 10.7 10^3/uL (1.7-8.2); BASOPHILS % (AUTO) 0.4 % (0-2); EOSINOPHILS % (AUTO) 0.4 % (0-6); HEMATOCRIT 41.1 % (37.9-51.0); HEMOGLOBIN 13.7 g/dL (13.5-17.0); LYMPHOCYTES % (AUTO) 12.9 % (13-45); MEAN CORPUSCULAR HEMOGLOBIN 26.2 pg (27.0-33.4); MEAN CORPUSCULAR HGB CONC 33.3 g/dL (32.0-36.0); MEAN CORPUSCULAR VOLUME 79 fl (80-97); MONOCYTES % (AUTO) 5.1 % (3-13); PLATELET COUNT 354 10^3/uL (150-450); RED BLOOD COUNT 5.21 10^6/uL (4.35-5.55); RED CELL DISTRIBUTION WIDTH 15.9 % (11.5-14.0); SEGMENTED NEUTROPHILS % (AUTO) 81.2 % (42-78); TOTAL CELLS COUNTED % (AUTO) 100 %; WHITE BLOOD COUNT 13.2 10^3/uL (4.0-10.5)
[2019-12-30 02:02] LABS: ALBUMIN 4.4 g/dL (3.5-5.0); ALKALINE PHOSPHATASE 81 U/L (38-126); ANION GAP 12 (5-19); ASPARTATE AMINO TRANSFERASE 68 U/L (17-59); BILIRUBIN,DIRECT 0.3 mg/dL (0.0-0.4); BILIRUBIN,TOTAL 0.6 mg/dL (0.2-1.3); BLOOD UREA NITROGEN 7 mg/dL (7-20); CALCIUM 9.8 mg/dL (8.4-10.2); CARBON DIOXIDE 24 mmol/L (22-30); CHLORIDE 103 mmol/L (98-107); GLUCOSE 114 mg/dL (75-110); POTASSIUM 4.2 mmol/L (3.6-5.0); TOTAL PROTEIN 7.3 g/dL (6.3-8.2)
[2019-12-30 02:05] LABS: ACETAMINOPHEN < 10 ug/mL (10-30); ALCOHOL < 10 mg/dL (NONE DETECTED); SALICYLATE < 1.0 mg/dL (2.0-20.0)
[2019-12-30] MEDS ORDERED: ZIPRASIDONE MESYLATE INJ/PF 20 MG SDV IM ONE (04:40)
[2019-12-30 07:03] LABS: APPEARANCE,URINE CLEAR; BILIRUBIN,URINE NEGATIVE (NEGATIVE); COLOR,URINE YELLOW; GLUCOSE, URINE NEGATIVE (NEGATIVE); KETONES,URINE NEGATIVE (NEGATIVE); LEUKOCYTE ESTERASE,URINE NEGATIVE (NEGATIVE); NITRITE,URINE NEGATIVE (NEGATIVE); PROTEIN,URINE NEGATIVE (NEGATIVE); URINE SPECIFIC GRAVITY 1.011; UROBILINOGEN,URINE NEGATIVE mg/dL (<2.0)
[2019-12-30 07:06] LABS: URINE AMPHETAMINES SCREEN NEGATIVE; URINE BARBITURATES SCREEN NEGATIVE; URINE COCAINE SCREEN NEGATIVE; URINE METHADONE SCREEN NEGATIVE; URINE PHENCYCLIDINE SCREEN NEGATIVE
[2019-12-30 07:08] LABS: ADD MANUAL MICROSCOPIC YES; URINE BENZODIAZEPINES SCREEN UNCONFIRMED POSITIVE; URINE MARIJUANA (THC) SCREEN UNCONFIRMED POSITIVE
[2019-12-30 07:10] LABS: BACTERIA,URINE TRACE /HPF; WBC,URINE RARE /HPF
--- NOTE | 2019-12-30 07:49 | EKG REPORT ---
SEVERITY:- OTHERWISE NORMAL ECG - SINUS TACHYCARDIA : Confirmed by: Tejinder Garcia MD 30-Dec-2019 07:48:15
[2019-12-30] MEDS ORDERED: BENZTROPINE MESYLATE 1 MG TABLET PO ONE (14:30)
[2019-12-30] MEDS ORDERED: OLANZAPINE 2.5 MG TABLET PO ONE (14:30)
[2019-12-30] MEDS: OLANZAPINE 2.5 MG TABLET PO SCH (19:33)
[2019-12-30] MEDS ORDERED: CLONIDINE HCL 0.2 MG TABLET PO SCH (22:00)
[2019-12-31] MEDS: OLANZAPINE 2.5 MG TABLET PO SCH (09:47)
[2019-12-31] MEDS ORDERED: BENZTROPINE MESYLATE 1 MG TABLET PO SCH (10:00)
--- NOTE | 2019-12-31 10:08 | PSYCHOLOGICAL NOTE ---
Psych Note - Psych Note Date seen by psych provider: 12/30/19 Time seen by psych provider: 11:46 - Evaluation with patient from [id number]. Discussion with patient and girlfriend at 192. Psych Note: Patient is a 34 year old male who presented to the Emergency Department last evening via privately owned vehicle/girlfriend due to jaki for the last 2 days, not sleeping and history of Bipolar. Patient reported "I feel very manic, I have conversations with people that aren't there, I am seeing things, I am hearing things." He noted a history of Bipolar. He identified his outpatient mental health provider for both medication management and therapy is [facility]. He stated he did just start therapy and denied any triggers from it yet. He denied suicidal and homicidal ideation. Throughout the day there was a different patient that was difficult. At one point patient was yelling at this patient telling him to "shut the fuck up," he got out of bed and came to his door, had tense body language, opened the door, yelled some more directly to the other patient, this clinician was in front of patient with body positioning, patient did not try to come out of his room and went back to his bed. Urine drug screen was positive for benzodiazepines (administered them in Emergency Department and urine collected after) and cannabis. Chart review revealed patient required medications (5 different ones from 2042 through 454) and physical restraints for manageability an safety to self and others. Medical staff reported nothing seemed to phase patient or bring him down. Also discovered patient is Prescribed Testerone Cypionate due to testicles being removed (per medical staff). This is important as it is related to hormones. Patient was alert and oriented to self, person, place, and situation. He asked about the time. Mood was depressed with flat affect. He denied current suicidal and homicidal ideation. Patient did not appear to be responding to internal stimuli as evidenced by fair eye contact and answering questions appropriately when addressed. Thought processes were on topic. Conversational speech was within normal limits for rate, tone and prosody. Intellectual abilities are estimated to be average. Insight, judgment and impulse control were poor as evidenced by reported no sleep and jaki with history of Bipolar. At 1925 spoke to patient and girlfriend who was present. Girlfriend identified patient was started on Rexulti 2 weeks ago and the past 2-3 days he has not been sleeping with lots of jaki. She noted patient was prescribed Vraylar earlier in the year, it helped within a couple days to manage jaki, but patient didn't li ke the way it made him feel. Patient stated "I think I had Bipolar symptoms before testicles being removed and being put on Testosterone. He stated "around age 11 I had a suicide attempt and was hospitalized, also when I was in jaki I would stay up all night cleaning." They reported patient's testicles were removed at age 17. Girlfriend noted a previous doctor had him on a higher amount of Testosterone and currently it is half of that. Clinical Presentation: Jaki No sleep in 2-3 days Recent medication change (2 weeks ago put on Rexulti) History of Bipolar Testicle Removal at age 17 and on Testosterone since) Medication recommendations made by the psychiatric medication provider Dr. Chato MORRISON., includes: Add Zyprexa 2.5MG once now for jaki/mood stabilization/impulse control Add Cogentin 1MG once now to curb tremor side effects often associated with antipsychotic medications Add Zyprexa 2.5MG twice a day for jaki/mood stabilization/impulse control Add Cogentin 1MG daily to curb tremor side effects often associated with antipsychotic medications Add Clonidine 0.2MG at night for sleep Please be mindful patient's QTc is 454 so need to be careful of antipsychotics, especially multiple and high doses Request Testosterone levels Impression/Plan: Recommendation for 24 Hour Petition for Evaluation. 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 Consulted with Dr. Morales regarding the management and care of patient. ED Physician in agreement with recommendations. When patient is discharged or transferred need to have a conversation about switching to a specialist (substation operator) for the Testosterone treatment and management versus Primary Care.
[2019-12-31 13:29] VITALS: BP 128/79
== END 2019-12-31 13:30 | disposition home or self-care (01) ==
LOC: ER 18:56
DX: F31.12 Bipolar disorder, current episode manic without psychotic features, moderate (principal); R44.1 Visual hallucinations; F41.9 Anxiety disorder, unspecified; F12.10 Cannabis abuse, uncomplicated; F17.210 Nicotine dependence, cigarettes, uncomplicated; R00.0 Tachycardia, unspecified; Z79.899 Other long term (current) drug therapy; Z85.47 Personal history of malignant neoplasm of testis; Z78.1 Physical restraint status
CPT/HCPCS: 93005; 99285; 96372; 36415; 82553; 80307 ×4; 84403; 85025; 80053; 81001; 84402; 71045; 93010; J2250; J1630; J3490 ×2; J3410; J2060; J3486 ×2